=== PATIENT | male | born 1940 | race Caucasian/White ===

== ENCOUNTER 2016-04-10 05:09 | Emergency (ER) | payer MEDICARE ==
[2016-04-10] MEDS ORDERED: dexameTHASONE 4 MG/ML 1ML VIAL (J1100) As Ordered ONE (06:23)
[2016-04-10] MEDS ORDERED: IPRATROPIUM 0.5MG/ALBUTEROL 2.5MG INH SOL UD 3ML (DUONEB)(J7620) As Ordered ONE (06:24)
--- NOTE | 2016-04-10 06:47 | EDDOCDS ---
Nurse's Notes [facility] Name: Yusuf Tinsley Age: 75 yrs Sex: Male : 1940 Arrival Date: 04/10/2016 Time: 05:09 Bed 9 Private MD: Diagnosis: Acute upper respiratory infection, unspecified-viral;Acute bronchitis Presentation: 04/10 05:20 Presenting complaint: Patient states: Sick all week. Was seen at [facility] last kmg1 week. Was dx with a sinus infection. Remains ill and congestion has settled in chest. Also has diarrhea. Suicide/Homicide risk assessment- the patient denies having any suicidal and/or homicidal ideations and does not present with any other emotional, behavioral or mental health complaints. 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 Transition of care: patient was not received from another setting of care. 05:20 [place]: [place] [facility] [place] Method Of Arrival: [place] [facility] [place] Adult Sepsis Screening: The patient does not have new or worsening altered mentation. tm5 Patient's respiratory rate is less than 22. Systolic blood pressure is greater than 100. Patient has a qSOFA score of 0- Negative Sepsis Screen. Triage Assessment: 05:28 General: Appears in no apparent distress, comfortable, Behavior is appropriate for age, kmg1 cooperative. Pain: Denies pain. Respiratory: Respiratory effort is even, unlabored, Respiratory pattern is regular, symmetrical. Historical: - Allergies: No known drug Allergies; - Home Meds: 1. Augmentin 875-125 mg Oral tab 1 tab every 12 hours (Last dose: 04/09/2016) 2. tamsulosin 0.4 mg oral cp24 1 cap nightly (Last dose: 04/09/2016) 3. losartan-hydrochlorothiazide 100-12.5 mg oral tab 1 tab once daily (Last dose: 04/09/2016) 4. finasteride 5 mg oral tab 1 tab once daily (Last dose: 04/09/2016) 5. Tylenol Cold and Flu Severe 6-88-884-200 mg/15 mL oral liqd (Last dose: 04/10/2016 04:00) - PMHx: Hypertension; Bladder Cancer; Cataracts; - Social history: Smoking status: Patient states former smoker of tobacco. No barriers to communication noted, The patient speaks fluent [place], Speaks appropriately for age, Preferred Language: [place]. - Family history: Not pertinent. - : The pt / caregiver states he / she is not on anticoagulants. Home medication list is obtained from pill bottles. - Exposure Risk Screening:: None identified. Screenin:36 Screening information is obtained from the patient. Fall risk: No risks identified. tm5 Assistance ADL's: requires no assistance with activities of daily living. Abuse/DV Screen: The patient / caregiver reports he/she is: not in a situation that causes fear, pain or injury. Nutritional screening: No deficits noted. Advance Directives: There is no active DNR order. home support is adequate. Assessment: 05:37 General: Appears in no apparent distress, Behavior is appropriate for age, cooperative. tm5 Pain: Denies pain. Neurological: Level of Consciousness is awake, alert, Oriented to person, place, time. Cardiovascular: Chest pain is denied. Respiratory: Airway is patent Respiratory effort is even, unlabored, Respiratory pattern is regular, symmetrical, Derm: Skin is pink, warm & dry. 06:44 Reassessment: Patient appears in no apparent distress at this time. Patient states tm5 feeling better. Patient states symptoms have improved. Vital Signs: 05:28 BP 145 / 81; Pulse 74; Resp 18; Temp 97.9; Pulse Ox 93% on R/A; Weight 111.13 kg (R); [facility] [place] 6 ft. (182.88 cm) (R); Pain 0/10; 06:44 BP 132 / 66; Pulse 70; Resp 18; Temp 98.0(O); Pulse Ox 95% on R/A; Pain 0/10; tm5 05:28 Body Mass Index 33.23 (111.13 kg, 182.88 cm) [facility] [place] Vitals: 05:28 Log In Time: April 10, 2016 at 05:12. [facility] [place] Course: 05:11 Patient visited by Bernie Laguerre Reg. hs2 05:11 Patient moved to Waiting hs2 05:22 [place]riage [place] [facility] [place] Burtno Wheat DO is Attending Physician. cs11 05:33 Patient visited by Burton Wheat DO. cs11 05:33 Patient moved to km 05:36 Patient visited by Joycelyn Montano RN. tm5 05:36 Patient moved to radiology. tm5 05:37 The patient / caregiver is instructed regarding the plan of care and ED course. tm5 05:56 [facility] Payment Agreement was scanned into [employer] and attached to record. hs2 06:33 Inserted saline lock: 20 gauge in right antecubital area The patient tolerated the tm5 procedure well. 06:33 Discontinued lock intact, bleeding controlled, pressure dressing applied, No tm5 redness/swelling at site. 06:38 Patient visited by Joycelyn Montano RN. tm5 06:44 Patient visited by Joycelyn Montano RN. tm5 06:44 No procedures done that require assistance. tm5 Administered Medications: 06:27 Drug: Albuterol-Ipratropium 3 ml [ipratropium-albuterol 0.5 mg-3 mg(2.5 mg base)/3 mL jc3 nebulization soln (3 mL)] Route: Inhalation; 06:38 Follow up: Response: No Adverse Reaction tm5 06:32 Drug: Dexamethasone 12 mg [dexamethasone 4 mg/mL injection solution] Route: IV; Rate: tm5 bolus; Site: right antecubital; RT: 06:27 Initial Med Neb Given as ordered Patient was instructed and evaluated on procedure. jc3 Oxygen is room air. Respiratory: Breath sounds are diminished bilaterally. Breath sounds with wheezes bilaterally. at expiration. Order Results: There are currently no results for this order. Outcome: 06:39 Discharge ordered by Provider. cs11 06:44 Discharge Assessment: Patient awake, alert and oriented x 3. No cognitive and/or tm5 functional deficits noted. Patient verbalized understanding of disposition instructions. patient administered narcotics - no. The following High Risk Discharge criteria are identified: None. Discharged to home ambulatory, with significant other. Condition: good Condition: stable Condition: improved. Discharge instructions given to patient, Instructed on discharge instructions, follow up and referral plans. medication usage, Demonstrated understanding of instructions, medications, Pt was receptive of discharge instructions/ teaching. Prescriptions given X 1. No special radiology studies were completed. Property :Personal belongings accompany Pt. 06:46 Patient left the ED. tm5 Signatures: Liliam Douglass RN RN kmg1 Johny Becerra jc3 Burton Wheat DO DO cs11 Bernie Laguerre, Reg Reg hs2 Matice,Joycelyn,RN RN tm5 MTDD
--- NOTE | 2016-04-10 06:47 | EDDOCDS ---
Physician Documentation [facility] Name: Yusuf Tinsley Age: 75 yrs Sex: Male : 1940 Arrival Date: 04/10/2016 Time: 05:09 Bed 9 Private MD: Disposition: 04/10/16 06:39 Discharged to Home/Self Care. Impression: Acute upper respiratory infection, unspecified - viral, Acute bronchitis. - Condition is Stable. - Prescriptions for Prednisone 20 mg Oral Tablet - take 3 tablets by ORAL route once daily for 4 days; 12 tablet. - Medication Reconciliation, Local Pharmacy Hours form. - Follow up: Private Physician; When: Call to arrange an appointment; Reason: Recheck today's complaints. - Problem is an ongoing problem. - Symptoms have improved. Historical: - Allergies: No known drug Allergies; - Home Meds: 1. Augmentin 875-125 mg Oral tab 1 tab every 12 hours (Last dose: 04/09/2016) 2. tamsulosin 0.4 mg oral cp24 1 cap nightly (Last dose: 04/09/2016) 3. losartan-hydrochlorothiazide 100-12.5 mg oral tab 1 tab once daily (Last dose: 04/09/2016) 4. finasteride 5 mg oral tab 1 tab once daily (Last dose: 04/09/2016) 5. Tylenol Cold and Flu Severe 3-31-584-200 mg/15 mL oral liqd (Last dose: 04/10/2016 04:00) - PMHx: Hypertension; Bladder Cancer; Cataracts; - Social history: Smoking status: Patient states former smoker of tobacco. No barriers to communication noted, The patient speaks fluent Bulgarian, Speaks appropriately for age, Preferred Language: Bulgarian. - Family history: Not pertinent. - : The pt / caregiver states he / she is not on anticoagulants. Home medication list is obtained from pill bottles. - Exposure Risk Screening:: None identified. Vital Signs: 04/10 05:28 BP 145 / 81; Pulse 74; Resp 18; Temp 97.9; Pulse Ox 93% on R/A; Weight 111.13 kg / 245 kmg1 lbs (R); Height 6 ft. (182.88 cm) (R); Pain 0/10; 06:44 BP 132 / 66; Pulse 70; Resp 18; Temp 98.0(O); Pulse Ox 95% on R/A; Pain 0/10; tm5 05:28 Body Mass Index 33.23 (111.13 kg, 182.88 cm) km MDM: 05:35 Chest, 2 View (pa\E\lat) Ordered. EDMS 05:55 Financial registration complete. hs2 05:56 [facility] Payment Agreement was scanned into [employer] and attached to record. hs2 06:19 IV Saline Lock ordered. cs11 06:19 Dexamethasone 12 mg IV at bolus once ordered. cs11 06:19 Albuterol-Ipratropium 3 ml Inhalation once ordered. cs11 06:19 Call Respiratory ordered. cs11 06:20 Call Respiratory complete. tm5 Administered Medications: 06:27 Drug: Albuterol-Ipratropium 3 ml [ipratropium-albuterol 0.5 mg-3 mg(2.5 mg base)/3 mL jc3 nebulization soln (3 mL)] Route: Inhalation; 06:38 Follow up: Response: No Adverse Reaction tm5 06:32 Drug: Dexamethasone 12 mg [dexamethasone 4 mg/mL injection solution] Route: IV; Rate: tm5 bolus; Site: right antecubital; Signatures: Dispatcher [employer] EDMS Liliam Douglass RN RN kmg1 Burton Wheat DO DO cs11 Bernie Laguerre, Elmer Reg hs2 Joycelyn Montano RN RN tm5 Johny Becerra jc3 The chart was reviewed and I authenticate all verbal orders and agree with the evaluation and treatment provided.Attachments: 05:56 [facility] Payment Agreement hs2 MTDD
--- NOTE | 2016-04-10 07:37 | REP ---
Clinical: Cough. Technique: PA and lateral. Comparison: 08/11/2005. Findings: Lingular atelectasis is suggested and requires correlation with auscultation and physical examination. Lung washburn are otherwise stable and clear. No pleural effusion or pneumothorax. Mediastinum and cardiac silhouette normal. Skeletal structures intact. Impression: Lingular atelectasis suggested. Correlation recommended along with follow-up to resolution. Signed by Ranjeet Mcintosh MD 04/10/2016 07:28 A
--- NOTE | 2016-04-12 07:46 | EDDOCDS ---
Nurse's Notes [facility] Name: Yusuf Tinsley Age: 75 yrs Sex: Male : 1940 Arrival Date: 04/10/2016 Time: 05:09 Bed 9 Private MD: Diagnosis: Acute upper respiratory infection, unspecified-viral;Acute bronchitis Presentation: 04/10 05:20 Presenting complaint: Patient states: Sick all week. Was seen at [facility] last kmg1 week. Was dx with a sinus infection. Remains ill and congestion has settled in chest. Also has diarrhea. Suicide/Homicide risk assessment- the patient denies having any suicidal and/or homicidal ideations and does not present with any other emotional, behavioral or mental health complaints. 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 Transition of care: patient was not received from another setting of care. 05:20 Acuity: SAMUEL Level 4 [facility] [place] Method Of Arrival: Walkin/Carried/Asstd [facility] [place] 06:46 Adult Sepsis Screening: The patient does not have new or worsening altered mentation. tm5 Patient's respiratory rate is less than 22. Systolic blood pressure is greater than 100. Patient has a qSOFA score of 0- Negative Sepsis Screen. Triage Assessment: 05:28 General: Appears in no apparent distress, comfortable, Behavior is appropriate for age, kmg1 cooperative. Pain: Denies pain. Respiratory: Respiratory effort is even, unlabored, Respiratory pattern is regular, symmetrical. Historical: - Allergies: No known drug Allergies; - Home Meds: 1. Augmentin 875-125 mg Oral tab 1 tab every 12 hours (Last dose: 04/09/2016) 2. tamsulosin 0.4 mg oral cp24 1 cap nightly (Last dose: 04/09/2016) 3. losartan-hydrochlorothiazide 100-12.5 mg oral tab 1 tab once daily (Last dose: 04/09/2016) 4. finasteride 5 mg oral tab 1 tab once daily (Last dose: 04/09/2016) 5. Tylenol Cold and Flu Severe 1-19-356-200 mg/15 mL oral liqd (Last dose: 04/10/2016 04:00) - PMHx: Hypertension; Bladder Cancer; Cataracts; - Social history: Smoking status: Patient states former smoker of tobacco. No barriers to communication noted, The patient speaks fluent [place], Speaks appropriately for age, Preferred Language: [place]. - Family history: Not pertinent. - : The pt / caregiver states he / she is not on anticoagulants. Home medication list is obtained from pill bottles. - Exposure Risk Screening:: None identified. Screenin:36 Screening information is obtained from the patient. Fall risk: No risks identified. tm5 Assistance ADL's: requires no assistance with activities of daily living. Abuse/DV Screen: The patient / caregiver reports he/she is: not in a situation that causes fear, pain or injury. Nutritional screening: No deficits noted. Advance Directives: There is no active DNR order. home support is adequate. Assessment: 05:37 General: Appears in no apparent distress, Behavior is appropriate for age, cooperative. tm5 Pain: Denies pain. Neurological: Level of Consciousness is awake, alert, Oriented to person, place, time. Cardiovascular: Chest pain is denied. Respiratory: Airway is patent Respiratory effort is even, unlabored, Respiratory pattern is regular, symmetrical, Derm: Skin is pink, warm & dry. 06:44 Reassessment: Patient appears in no apparent distress at this time. Patient states tm5 feeling better. Patient states symptoms have improved. Vital Signs: 05:28 BP 145 / 81; Pulse 74; Resp 18; Temp 97.9; Pulse Ox 93% on R/A; Weight 111.13 kg (R); [facility] [place] Height 6 ft. (182.88 cm) (R); Pain 0/10; 06:44 BP 132 / 66; Pulse 70; Resp 18; Temp 98.0(O); Pulse Ox 95% on R/A; Pain 0/10; tm5 05:28 Body Mass Index 33.23 (111.13 kg, 182.88 cm) [facility] [place] Vitals: 05:28 Log In Time: April 10, 2016 at 05:12. [facility] [place] Course: 05:11 Patient visited by Bernie Laguerre Reg. hs2 05:11 Patient moved to Waiting hs2 05:22 Triage Initiated [facility] [place] 05:33 Burton Wheat DO is Attending Physician. cs11 05:33 Patient visited by Burton Wheat DO. cs11 05:33 Patient moved to km 05:36 Patient visited by Joycelyn Montano RN. tm5 05:36 Patient moved to radiology. tm5 05:37 The patient / caregiver is instructed regarding the plan of care and ED course. tm5 05:56 [facility] Payment Agreement was scanned into [employer] and attached to record. hs2 06:33 Inserted saline lock: 20 gauge in right antecubital area The patient tolerated the tm5 procedure well. 06:33 Discontinued lock intact, bleeding controlled, pressure dressing applied, No tm5 redness/swelling at site. 06:38 Patient visited by Joycelyn Montano,NELDA. tm5 06:44 Patient visited by Joycelyn Montano,NELDA. tm5 06:44 No procedures done that require assistance. tm5 07:59 Chest, 2 View (pa\E\lat) Returned. EDMS 09:07 T-Sheet-- Draft Copy was scanned into [employer] and attached to record. seh Administered Medications: 06:27 Drug: Albuterol-Ipratropium 3 ml [ipratropium-albuterol 0.5 mg-3 mg(2.5 mg base)/3 mL jc3 nebulization soln (3 mL)] Route: Inhalation; 06:38 Follow up: Response: No Adverse Reaction tm5 06:32 Drug: Dexamethasone 12 mg [dexamethasone 4 mg/mL injection solution] Route: IV; Rate: tm5 bolus; Site: right antecubital; RT: 06:27 Initial Med Neb Given as ordered Patient was instructed and evaluated on procedure. jc3 Oxygen is room air. Respiratory: Breath sounds are diminished bilaterally. Breath sounds with wheezes bilaterally. at expiration. Order Results: Radiology Order: Chest, 2 View (pa\E\lat) Test: Chest, 2 View (pa\E\lat) REASON FOR EXAMINATION: Cough; Clinical: Cough.; ; Technique: PA and lateral.; ; Comparison: 08/11/2005.; ; Findings:; Lingular atelectasis is suggested and requires correlation with auscultation and; physical examination. Lung washburn are otherwise stable and clear. No pleural; effusion or pneumothorax. Mediastinum and cardiac silhouette normal. Skeletal; structures intact.; ; ; ; Impression:; Lingular atelectasis suggested. Correlation recommended along with follow-up to; resolution.; ; ; Signed by; Ranjeet Mcintosh MD 04/10/2016 07:28 A; Outcome: 06:39 Discharge ordered by Provider. cs11 06:44 Discharge Assessment: Patient awake, alert and oriented x 3. No cognitive and/or tm5 functional deficits noted. Patient verbalized understanding of disposition instructions. patient administered narcotics - no. The following High Risk Discharge criteria are identified: None. Discharged to home ambulatory, with significant other. Condition: good Condition: stable Condition: improved. Discharge instructions given to patient, Instructed on discharge instructions, follow up and referral plans. medication usage, Demonstrated understanding of instructions, medications, Pt was receptive of discharge instructions/ teaching. Prescriptions given X 1. No special radiology studies were completed. Property :Personal belongings accompany Pt. 06:46 Patient left the ED. tm5 Signatures: Dispatcher [employer] EDMS Liliam Douglass, RN RN kmg1 Johny Becerra jc3 Burton Wheat DO DO cs11 Bernie Laguerre, Reg Reg hs2 Lucía De La Rosa TonyaRN RN tm5 Chart Complete [facility]
--- NOTE | 2016-04-12 07:46 | EDDOCDS ---
Physician Documentation [facility] Name: Yusuf Tinsley Age: 75 yrs Sex: Male : 1940 Arrival Date: 04/10/2016 Time: 05:09 Bed 9 Private MD: Disposition: 04/10/16 06:39 Discharged to Home/Self Care. Impression: Acute upper respiratory infection, unspecified - viral, Acute bronchitis. - Condition is Stable. - Prescriptions for Prednisone 20 mg Oral Tablet - take 3 tablets by ORAL route once daily for 4 days; 12 tablet. - Medication Reconciliation, Local Pharmacy Hours form. - Follow up: Private Physician; When: Call to arrange an appointment; Reason: Recheck today's complaints. - Problem is an ongoing problem. - Symptoms have improved. Historical: - Allergies: No known drug Allergies; - Home Meds: 1. Augmentin 875-125 mg Oral tab 1 tab every 12 hours (Last dose: 04/09/2016) 2. tamsulosin 0.4 mg oral cp24 1 cap nightly (Last dose: 04/09/2016) 3. losartan-hydrochlorothiazide 100-12.5 mg oral tab 1 tab once daily (Last dose: 04/09/2016) 4. finasteride 5 mg oral tab 1 tab once daily (Last dose: 04/09/2016) 5. Tylenol Cold and Flu Severe 2-22-426-200 mg/15 mL oral liqd (Last dose: 04/10/2016 04:00) - PMHx: Hypertension; Bladder Cancer; Cataracts; - Social history: Smoking status: Patient states former smoker of tobacco. No barriers to communication noted, The patient speaks fluent Kyrgyz, Speaks appropriately for age, Preferred Language: Kyrgyz. - Family history: Not pertinent. - : The pt / caregiver states he / she is not on anticoagulants. Home medication list is obtained from pill bottles. - Exposure Risk Screening:: None identified. Vital Signs: 04/10 05:28 BP 145 / 81; Pulse 74; Resp 18; Temp 97.9; Pulse Ox 93% on R/A; Weight 111.13 kg / 245 kmg1 lbs (R); Height 6 ft. (182.88 cm) (R); Pain 0/10; 06:44 BP 132 / 66; Pulse 70; Resp 18; Temp 98.0(O); Pulse Ox 95% on R/A; Pain 0/10; tm5 05:28 Body Mass Index 33.23 (111.13 kg, 182.88 cm) [facility] [place]DM: 05:35 Chest, 2 View (pa\E\lat) Ordered. EDMS 05:55 Financial registration complete. hs2 05:56 [facility] Payment Agreement was scanned into [employer] and attached to record. hs2 06:19 IV Saline Lock ordered. cs11 06:19 Dexamethasone 12 mg IV at bolus once ordered. cs11 06:19 Albuterol-Ipratropium 3 ml Inhalation once ordered. cs11 06:19 Call Respiratory ordered. cs11 06:20 Call Respiratory complete. tm5 09:07 T-Sheet-- Draft Copy was scanned into [employer] and attached to record. seh Administered Medications: 06:27 Drug: Albuterol-Ipratropium 3 ml [ipratropium-albuterol 0.5 mg-3 mg(2.5 mg base)/3 mL jc3 nebulization soln (3 mL)] Route: Inhalation; 06:38 Follow up: Response: No Adverse Reaction tm5 06:32 Drug: Dexamethasone 12 mg [dexamethasone 4 mg/mL injection solution] Route: IV; Rate: tm5 bolus; Site: right antecubital; Signatures: Dispatcher [employer] EDSD Liliam Douglass, RN RN kmg1 Burton Wheat DO DO cs11 Bernie Laguerre, Reg Reg hs2 Lucía De La Rosa Tonya, RN RN tm5 Johny Becerra jc3 The chart was reviewed and I authenticate all verbal orders and agree with the evaluation and treatment provided.Attachments: 05:56 [facility] Payment Agreement hs2 09:07 T-Sheet-- Draft Copy se Chart Complete MTDD
--- NOTE | 2016-04-12 07:46 | EDDOCDS ---
Physician Documentation [facility] Name: Yusuf Tinsley Age: 75 yrs Sex: Male : 1940 Arrival Date: 04/10/2016 Time: 05:09 Bed 9 Private MD: Disposition: 04/10/16 06:39 Discharged to Home/Self Care. Impression: Acute upper respiratory infection, unspecified - viral, Acute bronchitis. - Condition is Stable. - Prescriptions for Prednisone 20 mg Oral Tablet - take 3 tablets by ORAL route once daily for 4 days; 12 tablet. - Medication Reconciliation, Local Pharmacy Hours form. - Follow up: Private Physician; When: Call to arrange an appointment; Reason: Recheck today's complaints. - Problem is an ongoing problem. - Symptoms have improved. Historical: - Allergies: No known drug Allergies; - Home Meds: 1. Augmentin 875-125 mg Oral tab 1 tab every 12 hours (Last dose: 04/09/2016) 2. tamsulosin 0.4 mg oral cp24 1 cap nightly (Last dose: 04/09/2016) 3. losartan-hydrochlorothiazide 100-12.5 mg oral tab 1 tab once daily (Last dose: 04/09/2016) 4. finasteride 5 mg oral tab 1 tab once daily (Last dose: 04/09/2016) 5. Tylenol Cold and Flu Severe 9-62-107-200 mg/15 mL oral liqd (Last dose: 04/10/2016 04:00) - PMHx: Hypertension; Bladder Cancer; Cataracts; - Social history: Smoking status: Patient states former smoker of tobacco. No barriers to communication noted, The patient speaks fluent Syriac, Speaks appropriately for age, Preferred Language: Syriac. - Family history: Not pertinent. - : The pt / caregiver states he / she is not on anticoagulants. Home medication list is obtained from pill bottles. - Exposure Risk Screening:: None identified. Vital Signs: 04/10 05:28 BP 145 / 81; Pulse 74; Resp 18; Temp 97.9; Pulse Ox 93% on R/A; Weight 111.13 kg / 245 kmg1 lbs (R); Height 6 ft. (182.88 cm) (R); Pain 0/10; 06:44 BP 132 / 66; Pulse 70; Resp 18; Temp 98.0(O); Pulse Ox 95% on R/A; Pain 0/10; tm5 05:28 Body Mass Index 33.23 (111.13 kg, 182.88 cm) [facility] [place] MDM: 05:35 Chest, 2 View (pa\E\lat) Ordered. EDMS 05:55 Financial registration complete. hs2 05:56 [facility] Payment Agreement was scanned into [employer] and attached to record. hs2 06:19 IV Saline Lock ordered. cs11 06:19 Dexamethasone 12 mg IV at bolus once ordered. cs11 06:19 Albuterol-Ipratropium 3 ml Inhalation once ordered. cs11 06:19 Call Respiratory ordered. cs11 06:20 Call Respiratory complete. tm5 09:07 T-Sheet-- Draft Copy was scanned into [employer] and attached to record. seh Administered Medications: 06:27 Drug: Albuterol-Ipratropium 3 ml [ipratropium-albuterol 0.5 mg-3 mg(2.5 mg base)/3 mL jc3 nebulization soln (3 mL)] Route: Inhalation; 06:38 Follow up: Response: No Adverse Reaction tm5 06:32 Drug: Dexamethasone 12 mg [dexamethasone 4 mg/mL injection solution] Route: IV; Rate: tm5 bolus; Site: right antecubital; Signatures: Dispatcher [employer] EDMA Liliam Douglass, RN RN kmg1 Burton Wheat DO DO cs11 Bernie Laguerre, Reg Reg hs2 Lucía De La Rosa Tonya, RN RN tm5 Johny Becerra jc3 The chart was reviewed and I authenticate all verbal orders and agree with the evaluation and treatment provided.Attachments: 05:56 [facility] Payment Agreement hs2 09:07 T-Sheet-- Draft Copy se Chart Complete MTDD
== END 2016-04-10 06:46 | disposition home or self-care (01) ==
LOC: M ED 05:09
DX: J20.9 Acute bronchitis, unspecified (principal); J06.9 Acute upper respiratory infection, unspecified; I10 Essential (primary) hypertension; H26.9 Unspecified cataract; Z85.51 Personal history of malignant neoplasm of bladder; Z79.899 Other long term (current) drug therapy; Z79.2 Long term (current) use of antibiotics; Z87.891 Personal history of nicotine dependence
CPT/HCPCS: 71020; 94640; 96374; 99284; J1100

== ENCOUNTER → 2016-05-06 | Outpatient (CLI) | payer MEDICARE | LOC: M LRY 07:56 | PROVIDERS: ATTEND Urology | DX: R31.9 Hematuria, unspecified (principal); R35.0 Frequency of micturition ==

== ENCOUNTER → 2016-11-29 | Outpatient (CLI) | payer MEDICARE ==
[~2016-11-29] MED LIST: AMOX875T2 PO; ASPI1TAB PO; D31000TA PO; DORZ2SOL5 OU; FINA5TAB2 PO; FLOM5CAP PO; LEVOTAB10 PO; LOSA100T8 PO; PRED10TA2 PO; TYLE325T5 PO; VITA-176 PO; XALA0.007 OU
--- NOTE | 2016-11-29 09:43 | REP ---
CHEST, TWO VIEWS: HISTORY: Dyspnea. COMPARISON: 04/10/2016. Increased density is present in the lingula consistent with an infiltrate. The right lung is clear. The heart is normal in size. The pulmonary vasculature is normal in appearance. The bony structure is intact. IMPRESSION: There is an infiltrate in the lingula. An underlying mass cannot be excluded. CT of the chest is recommended for further evaluation. Signed by Clifford Mantilla MD 11/29/2016 09:48 A
== END ==
LOC: M LRY 07:53
PROVIDERS: ATTEND Physician Assistant Medical
DX: R91.8 Other nonspecific abnormal finding of lung field (principal)

== ENCOUNTER 2016-12-08 06:47 | Inpatient (IN) | payer MEDICARE ==
[~2016-12-08] VITALS: Ht 182.9 cm; Wt 111.8 kg
[2016-12-08] MEDS ORDERED: methylPREDNISolone INJ 125 MG/2 ML VIAL (J2930) IV ONE (07:15)
[2016-12-08] MEDS ORDERED: ALBUTEROL SULFATE 2.5 MG/0.5 ML INH NEB SOLN INH ONE (07:15)
[2016-12-08] MEDS ORDERED: IPRATROPIUM 0.5MG/ALBUTEROL 2.5MG INH SOL UD 3ML (DUONEB)(J7620) NEB ONE (07:15)
[2016-12-08] MEDS ORDERED: ASPI1TAB PO (07:17)
[2016-12-08] MEDS ORDERED: FINA5TAB2 PO (07:17)
[2016-12-08] MEDS ORDERED: LEVOTAB10 PO (07:17)
[2016-12-08] MEDS ORDERED: VITA-176 PO (07:17)
[2016-12-08] MEDS ORDERED: LOSA100T8 PO (07:17)
[2016-12-08] MEDS ORDERED: DORZ2SOL5 OU (07:17)
[2016-12-08] MEDS ORDERED: XALA0.007 OU (07:17)
[2016-12-08 08:05] LABS: BASO % 0.4 % (0.0-1.0); EOS # 0.1 10^3/uL (0.0-0.50); EOS % 1.3 % (0.0-3.0); IMMATURE GRANULOCYTE % 0.4 % (0-0); LYMPH # 1.5 10^3/uL (1.5-4.5); LYMPH % 16.5 % (24.0-44.0); MEAN CORPUSCULAR VOLUME 87.7 fl (80.0-96.0); MONO # 0.6 10^3/uL (0.0-0.8); MONO % 6.6 % (0.0-5.0); NEUTROPHILS # 6.7 10^3/uL (1.8-7.7); NEUTROPHILS % 74.8 % (36.0-66.0); PLATELET COUNT, AUTOMATED 275 10^3/uL (150-450); RED CELL DISTRIBUTION WIDTH 13.3 % (11.5-14.5)
--- NOTE | 2016-12-08 08:08 | REP ---
Portable chest, 07:52 a.m.: Comparisons are 11/29/2078 04/10/2016. There is a large focal density in the lingula, and 2016. This could represent mass or a persisting infiltrate. CT is recommended for follow up. The right lung is clear. Cardiac size normal. The bobby, mediastinum, bony thorax are unremarkable. Impression: Persisting large density in the lingula, mass versus infiltrate. CT is recommended. Signed by Alonso Sykes MD 12/08/2016 07:59 A
[2016-12-08] MEDS ORDERED: cefTRIAXone SOD 1 GM in D5W 50 ML IV ONE (08:15)
[2016-12-08] MEDS ORDERED: AZITHROMYCIN INJ 500 MG, VIAL MATE ADAPTER 1 EACH in D5W 250 ML IV ONE (08:15)
[2016-12-08 08:23] LABS: ABG BASE EXCESS 3.2 (-2.0-2.0); ABG HCO3 28.1 MEQ/L (22.0-26.0); ABG PARTIAL PRESSURE CO2 43.6 mmHg (35.0-45.0); ABG PARTIAL PRESSURE O2 61.7 mmHg (75.0-100.0); ABG STANDARD HCO3 27.2 MEQ/L (22.0-26.0); ABG TOTAL CO2 29.4 MEQ/L (23.0-31.0); ABG pH (ARTERIAL) 7.427 UNITS (7.350-7.450)
--- NOTE | 2016-12-08 08:29 | ECGEPIP ---
Stationary ECG Study [facility] Test Date: 2016-12-08 Pat Name: THAO FORDE Department: Room: - Gender: M Under Baster: KATARZYNA : 1940 Requested By: DANIEL Willingham Order Number: [id number] Reading MD: Олег Leigh Measurements Intervals [place] Rate: 75 P: 56 ID: [id number] QRS: 67 QRSD: 124 T: 50 QT: 366 QTc: 409 Interpretive Statements Normal sinus rhythm Low voltages with slow precordial R-wave progression and persistent S waves V5 and V6; body habitus versus Pulmonary disease Marginal inferior ST scooping No prior tracing for comparison Electronically Signed On 12-08-2016 8:29:09 EDT by Олег Leigh
[2016-12-08 08:46] LABS: ALBUMIN 3.5 GM/DL (3.2-5.2); ALBUMIN/GLOBULIN RATIO 0.97 (1.00-1.93); ALKALINE PHOSPHATASE 95 U/L (45-117); ALT/SGPT 20 U/L (12-78); ANION GAP 8 MEQ/L (8-16); AST/SGOT 12 U/L (15-37); BILIRUBIN,DIRECT 0.2 MG/DL (0.0-0.2); BILIRUBIN,TOTAL 0.5 MG/DL (0.2-1.0); BLOOD UREA NITROGEN 11 MG/DL (7-18); CALCIUM LEVEL 8.8 MG/DL (8.8-10.2); CARBON DIOXIDE LEVEL 28 MEQ/L (21-32); CHLORIDE LEVEL 106 MEQ/L (98-107); CREATININE FOR GFR 0.74 MG/DL (0.70-1.30); GLOMERULAR FILTRATION RATE > 60.0 (>42); GLUCOSE, FASTING 109 MG/DL (83-110); POTASSIUM SERUM 4.2 MEQ/L (3.5-5.1); SODIUM LEVEL 142 MEQ/L (136-145); THYROXINE (T4) 8.8 UG/DL (4.5-12.0); TOTAL PROTEIN 7.1 GM/DL (6.4-8.2)
[2016-12-08] MEDS ORDERED: TYLE325T5 PO (08:58)
[2016-12-08] MEDS ORDERED: FLOM5CAP PO (08:58)
[2016-12-08] MEDS ORDERED: D31000TA PO (08:58)
[2016-12-08] MEDS: COSOPT OCUMETER PLUS 10ML (DORZOLAMIDE/TIMOLOL) OU SCH ×2 (09:00→20:27)
[2016-12-08] MEDS ORDERED: DOXYCYCLINE HYCLATE 100 MG TAB PO SCH (09:00)
[2016-12-08] MEDS ORDERED: ISOVUE-370 76% 100ML VIAL (Q9967) As Ordered ONE (09:23)
--- NOTE | 2016-12-08 10:26 | REP ---
CT pulmonary angiogram: With IV contrast. History: Abnormal chest x-ray. Comparison studies: Comparison is made with today's chest x-ray as well as chest x-rays from November 29, 2016 and April 10, 2016. Contrast dose: 75 cc's of Isovue [address] technique: Helical scanning is acquired and overlapping 1.5 mm and contiguous 3 mm axial images are reformatted. In addition, a 3-D work station is deployed to generate thick slab maximum intensity projection images in sagittal and coronal imaging projections. CT pulmonary angiographic findings: There is good opacification of the pulmonary arterial tree and there is no CT evidence of pulmonary embolism. The thoracic aorta enhances homogeneously and is normal in caliber, contour. Vascular calcification is noted. No extrathoracic mass or adenopathy is seen. No adrenal mass is observed. Diverticulosis is noted in the colon in the upper abdomen. There is evidence of fatty infiltration of the liver. There is a small left pleural effusion. There is extensive dense consolidation throughout the lingular segment of the left upper lobe and infiltrate is seen in much of the remainder of the left upper lobe. There is convex posteriorly bowing of the major fissure on the left adjacent to this. There are scattered granulomatous calcifications in the opacified lingular segment left upper lobe. There is evidence of bronchial narrowing of what appears to be the superior segment lingular bronchus. No obvious mass lesion is visible. Air bronchograms are seen elsewhere in the lingular opacity. The right lung is essentially clear. There is a single AP window mediastinal lymph node measuring 16 mm in greatest diameter. Subcarinal nodes are seen, the largest of which measures 17 mm in greatest diameter. These could be reactive. Impression: 1. No CT evidence of pulmonary embolism. 2. Dense consolidation in the lingular segment left upper lobe and, to a lesser extent, in the remainder of the left upper lobe. 3. Question endobronchial lesion versus extrinsic bronchial narrowing involving the superior segment lingular bronchus. 4. Small left pleural effusion. 5. Scattered granulomatous calcifications. 6. Fatty infiltration of the liver. 7. Colonic diverticulosis. Signed by Amor Kolb MD 12/08/2016 01:18 P
[2016-12-08] MEDS ORDERED: ACETAMINOPHEN TAB 650MG DOSE (2X325MG) PO PRN (11:45)
[2016-12-08] MEDS ORDERED: IPRATROPIUM 0.5MG/ALBUTEROL 2.5MG INH SOL UD 3ML (DUONEB)(J7620) NEB PRN (11:45)
[2016-12-08 15:05] VITALS: BP 140/90
[2016-12-08] MEDS: IPRATROPIUM 0.5MG/ALBUTEROL 2.5MG INH SOL UD 3ML (DUONEB)(J7620) NEB SCH ×2 (15:36→20:12)
[2016-12-08 20:00] VITALS: BP 154/74
[2016-12-08] MEDS: methylPREDNISolone INJ 40 MG/1 ML VIAL (J2920) IV SCH (20:26)
[2016-12-08] MEDS: TAMSULOSIN 0.4 MG CAP PO SCH (20:26)
[2016-12-08] MEDS: FINASTERIDE 5 MG TAB PO SCH (20:26)
[2016-12-08] MEDS: LATANOPROST 0.005% OPHTH SOLN 2.5 ML OU SCH (20:27)
--- NOTE | 2016-12-08 20:47 | HPEPDOC ---
General Date of Admission Dec 08, 2016 at 12:38 Primary Care Physician: Tyrese Vazquez Attending Physician: DILIP CURTIS MD Chief Complaint The patient is a 76-year-old male admitted with a reason for visit of Pneumonia. History of Present Illness Patient is 76-year-old male with past medical history significant for hypertension, BPH, glaucoma, overactive bladder presents emergency room with shortness of breath. The shortness of breath spent ongoing for the past year or so but lately has gotten worse. Within the last 3 weeks patient noticed he is more short of breath with ambulation. He states he can now only walk about 20 steps and he gets out of breath. He still to walk a lot further. Patient reports having periods of shortness of breath with lying down to sleep. This wakes him up in the night frequently. Lately he has been waking him up even more about 3-4 times a night. Only sleeping really an hour at night. Happens anytime he lays flat. Patient is seen at [facility]. Was initially sent to Dr. Williamson, cardiology who performed a workup. Echocardiogram was performed October 2016 revealed left ventricular ejection fracture of 60-70%. Stress test was a normal test. Patient was seemingly cleared by cardiology. Patient return to the [facility] clinic and had chest x-ray performed. Was then referred to pulmonology. Patient is still in the process of being referred and has not seen a shop hand yet. Patient reports also having a cough last few days. Coughing up very little, clear phlegm. Denies any blood. No chest pain. Denies any pleuritic chest pain. Patient also admits to having some dizziness when he gets up quick. Happens with changing position. Feels like he is going to pass out. Still eating and drinking oral intake well. Home Medications Scheduled (Losartan Potassium/Hydroc 100-12.5 mg) 1 Tab Tab, 1 TAB PO DAILY, (Reported) (Dorzolamide HCl/Timolol M 22.3-6.8 mg/ml) 1 Luanne Luanne, 1 DROP OU BID, (Reported) Amoxicillin/Clavulanate Potas (Amoxicillin/Clavulanate P 875-125 mg) 1 Tab Tab, 875 MG PO BID Cholecalciferol (D3) 1,000 Unit Tab, 3,000 UNIT PO DAILY, (Reported) Finasteride (Finasteride) 5 Mg Tab, 5 MG PO DAILY, (Reported) Latanoprost (Xalatan) 0.005 % Luanne, 1 DROP OU QHS, (Reported) Levocetirizine Hydrochloride (Levocetirizine Dihydrochl) 5 Mg Tab, 5 MG PO DAILY , (Reported) Prednisone (Prednisone) 10 Mg Tab, 10 MG PO ASDIRECTED 4 tablets po bid for 3 days 4 tablets po daily for 3 days 2 tablets po daily for 3 days 1 tablet daily for 3 days Tamsulosin Hydrochloride (Flomax) 0.4 Mg Cap, 0.4 MG PO QPM, (Reported) Scheduled PRN Acetaminophen (Tylenol) 325 Mg Tab, 650 MG PO Q4H PRN for PAIN, (Reported) Allergies Coded Allergies: No Known Allergies (Unverified , 12/08/16) Past Medical History Medical History Hypertension Glaucoma BPH Overactive bladder, urologist Dr. Ferdinand Hernandes, [place] History of bladder carcinoma Surgical History Bladder carcinoma removed Family History Mom: Dad: , cancer of stomach Brother: 80 years old, neck artery problem Sister: 82 years old, heart problems Social History * Smoker: former Smoker, other (smoked from 15 years old and 40, 1-2 packs a day) Alcohol: Denies Drugs: denies Recent Travel/Sick Contacts: Denies: Recent travel, Recent sick contacts Lives at home with . Has 1 dog. No drug allergies noted. Review of Symptoms Constitutional: Denies: Chills, Fever Eyes: Denies: Pain, Vision change ENT: Reports: Other Symptoms (dizzy with standing quickly, bending forward), Denies: Head Aches Skin: Denies: Rash, Lesions Pulmonary: Reports: Dyspnea, Cough, Denies: Pleuritic Chest Pain Cardiovascular: Denies: Chest Pain, Palpitations Gastrointestinal: Reports: Other Symptoms (Last BM this morning. ), Denies: Nausea, Vomiting, Abdominal Pain, Diarrhea, Melena, Hematochezia Genitourinary: Denies: Dysuria, Frequency Hematologic: Denies: Bruising, Bleeding Excessively Musculoskeletal: Denies: Neck Pain, Back Pain Neurological: Denies: Weakness, Numbness, Change in speech Physical Examination General Exam: Positive: Alert, Cooperative, No Acute Distress Eye Exam: Positive: PERRLA, Conjunctiva & lids normal, EOMI, Negative: Sclera icteric, Ptosis ENT Exam: Positive: Atraumatic Neck Exam: Positive: Supple, Negative: JVD, Lymphadenopathy Chest Exam: Positive: Diminished (left side) Heart Exam: Positive: Rate Normal, Normal S1, Normal S2 Abdomen Exam: Positive: Normal bowel sounds, Soft, Negative: Tenderness, Hepatospenomegaly Extremity Exam: Positive: Normal pulses (radial pulse 2/4) Neuro Exam: Positive: Normal Gait, Normal Speech, Strength at 5/5 X4 ext, Cranial Nerves 3-12 NL Psych Exam: Positive: Mental status NL, Oriented x 3 Vital Signs Vital Signs Date Time Temp Pulse Resp B/P (MAP) Pulse Ox O2 Delivery O2 Flow Rate FiO2 12/08/16 15:05 97.8 110 22 140/90 (107) 94 Nasal Cannula 2.0 Laboratory Data Labs 24H Laboratory Tests 2 12/08/16 07:47: Immature Granulocyte % (Auto) 0.4H, White Blood Count 9.0, Red Blood Count 5.28 , Hemoglobin 15.3, Hematocrit 46.3, Mean Corpuscular Volume 87.7, Mean Corpuscular Hemoglobin 29.0, Mean Corpuscular Hemoglobin Concent 33.0, Red Cell Distribution Width 13.3, Platelet Count 275, Neutrophils (%) (Auto) 74.8H, Lymphocytes (%) (Auto) 16.5L, Monocytes (%) (Auto) 6.6H, Eosinophils (%) (Auto) 1.3, Basophils (%) (Auto) 0.4, Neutrophils # (Auto) 6.7, Lymphocytes # (Auto) 1.5, Monocytes # (Auto) 0.6, Eosinophils # (Auto) 0.1, Basophils # (Auto) 0.0, Immature Granulocyte # (Auto) 0.0, Nucleated Red Blood Cells % (auto) 0.0, Anion Gap 8, Glomerular Filtration Rate > 60.0, Lactic Acid Level 1.6, Calcium Level 8.8, Aspartate Amino Transf (AST/SGOT) 12L, Alanine Aminotransferase (ALT/ SGPT) 20, Alkaline Phosphatase 95, Total Bilirubin 0.5, Direct Bilirubin 0.2, Total Creatine Kinase 64, Creatine Kinase MB 1.3, Creatine Kinase MB Relative Index 2.03, Troponin I < 0.02, OB-Yut-Z-Type Natriuretic Peptide 54, Total Protein 7.1, Albumin 3.5, Albumin/Globulin Ratio 0.97L, Thyroid Stimulating Hormone (TSH) 1.550, Thyroxine (T4) 8.8 12/08/16 08:08: Blood Gas Bicarbonate Standard 27.2H, Arterial Blood pH 7.427, Arterial Blood Partial Pressure CO2 43.6, Arterial Blood Partial Pressure O2 61.7L, Arterial Blood Total CO2 29.4, Arterial Blood HCO3 28.1H, Arterial Blood Base Excess 3.2H , Arterial Blood Oxygen Saturation 92.9L CBC/BMP Laboratory Tests 12/08/16 07:47 Red Blood Count 5.28, Mean Corpuscular Volume 87.7, Mean Corpuscular Hemoglobin 29.0, Mean Corpuscular Hemoglobin Concent 33.0, Red Cell Distribution Width 13.3 , Neutrophils (%) (Auto) 74.8 H, Lymphocytes (%) (Auto) 16.5 L, Monocytes (%) ( Auto) 6.6 H, Eosinophils (%) (Auto) 1.3, Basophils (%) (Auto) 0.4, Neutrophils # (Auto) 6.7, Lymphocytes # (Auto) 1.5, Monocytes # (Auto) 0.6, Eosinophils # ( Auto) 0.1, Basophils # (Auto) 0.0 Microbiology Microbiology 12/08/16 Blood Culture, Received Pending 12/08/16 Blood Culture, Received Pending 12/08/16 Influenza Virus Type A Antigen - Final, Complete 12/08/16 Influenza Virus Type B Antigen - Final, Complete Assessment/Plan 1. Pneumonia, likely postobstructive Patient has pneumonia evidence on CT scan. Continue with steroids, Solu-Medrol IV 40 twice a day. Rocephin IV for antibiotics. Ordering sputum culture. We'll change antibiotics if needed. Some culture. Respiratory therapy consulted for Acapella. Continue nebulizer treatments. Monitor vitals. Influenza negative. Blood cultures pending. 2. Hypoxia Hypoxic on ABG and is requiring oxygen to maintain O2 saturation. Monitor patient. Continue breathing treatments as needed. 3. Lung mass Lung mass noted on x-ray and CT. Pulmonology has been consulted. Appreciate their assistance in management of this patient. Sputum cytology has been ordered. 4. Hypertension Continue home medications. Monitor vitals. 5. BPH Continue home medications. Monitor urine output 6. Overactive bladder Continue home medications. Monitor urine output 7. Glaucoma continue eye drops. DVT prophylaxis teds Plan / VTE VTE Prophylaxis Ordered?: Yes Plan Plan Patient is a 76-year-old male with hypoxia and noted lung mass. Consulting pulmonology. Follow up in the morning. GME ATTESTATION GME ATTESTATION My preceptor for this patient encounter was physically present in the building during the encounter and was fully available. As needed, all aspects of the patient interview, examination, medical decision making process, and medical care plan development were reviewed and approved by the preceptor. Preceptor is aware and concurs with the plan as stated in the body of this note and will attest to such by his/her cosignature. SUSAN VALENCIA DO Dec 08, 2016 20:47
[2016-12-09] VITALS (7 sets, daily range): BP systolic 128–156; BP diastolic 60–81
[2016-12-09] MEDS: IPRATROPIUM 0.5MG/ALBUTEROL 2.5MG INH SOL UD 3ML (DUONEB)(J7620) NEB SCH ×7 (03:10→23:26)
[2016-12-09 05:32] LABS: MEAN CORPUSCULAR HEMOGLOBIN 29.1 pg (27.0-33.0); MEAN CORPUSCULAR VOLUME 88.1 fl (80.0-96.0); PLATELET COUNT, AUTOMATED 291 10^3/uL (150-450); RED CELL DISTRIBUTION WIDTH 13.5 % (11.5-14.5); WHITE BLOOD COUNT 17.2 10^3/uL (4.0-10.0)
[2016-12-09 05:46] LABS: ANION GAP 7 MEQ/L (8-16); BLOOD UREA NITROGEN 15 MG/DL (7-18); CALCIUM LEVEL 9.1 MG/DL (8.8-10.2); CARBON DIOXIDE LEVEL 29 MEQ/L (21-32); CHLORIDE LEVEL 106 MEQ/L (98-107); CREATININE FOR GFR 0.85 MG/DL (0.70-1.30); GLOMERULAR FILTRATION RATE > 60.0 (>42); GLUCOSE, FASTING 164 MG/DL (83-110); MAGNESIUM LEVEL 2.5 MG/DL (1.8-2.4); POTASSIUM SERUM 4.3 MEQ/L (3.5-5.1); SODIUM LEVEL 142 MEQ/L (136-145)
[2016-12-09] MEDS: methylPREDNISolone INJ 40 MG/1 ML VIAL (J2920) IV SCH ×2 (08:43→20:53)
[2016-12-09] MEDS: cefTRIAXone SOD 2 GM in D5W 50 ML IV SCH (08:44)
[2016-12-09] MEDS: hydroCHLOROthiazide 12.5 MG CAPSULE PO SCH (08:44)
[2016-12-09] MEDS: VITAMIN D 1,000 INTERNATIONAL UNITS TABLET PO SCH (08:44)
[2016-12-09] MEDS: COSOPT OCUMETER PLUS 10ML (DORZOLAMIDE/TIMOLOL) OU SCH ×2 (08:45→20:53)
[2016-12-09] MEDS: LOSARTAN 50 MG TAB PO SCH (08:45)
[2016-12-09] MEDS ORDERED: ENOXAPARIN 30 MG/0.3 ML SYR (J1650) SC SCH (09:00)
[2016-12-09] MEDS ORDERED: ASPIRIN 81 MG ENTERIC TAB PO SCH (09:00)
[2016-12-09] MEDS ORDERED: AZITHROMYCIN INJ 500 MG, VIAL MATE ADAPTER 1 EACH in D5W 250 ML IV SCH (10:00)
[2016-12-09] MEDS: FINASTERIDE 5 MG TAB PO SCH (20:53)
[2016-12-09] MEDS: TAMSULOSIN 0.4 MG CAP PO SCH (20:53)
[2016-12-09] MEDS: LATANOPROST 0.005% OPHTH SOLN 2.5 ML OU SCH (20:53)
[2016-12-10] MEDS: IPRATROPIUM 0.5MG/ALBUTEROL 2.5MG INH SOL UD 3ML (DUONEB)(J7620) NEB SCH ×3 (04:00→12:07)
[2016-12-10 04:40] VITALS: BP 142/84
[2016-12-10 05:22] LABS: MEAN CORPUSCULAR HGB CONC 33.1 g/dl (32.0-36.5); MEAN CORPUSCULAR VOLUME 87.8 fl (80.0-96.0); PLATELET COUNT, AUTOMATED 309 10^3/uL (150-450); RED CELL DISTRIBUTION WIDTH 13.8 % (11.5-14.5); WHITE BLOOD COUNT 19.5 10^3/uL (4.0-10.0)
[2016-12-10 05:34] LABS: ANION GAP 8 MEQ/L (8-16); BLOOD UREA NITROGEN 19 MG/DL (7-18); CALCIUM LEVEL 8.9 MG/DL (8.8-10.2); CARBON DIOXIDE LEVEL 29 MEQ/L (21-32); CHLORIDE LEVEL 103 MEQ/L (98-107); CREATININE FOR GFR 0.88 MG/DL (0.70-1.30); GLOMERULAR FILTRATION RATE > 60.0 (>42); GLUCOSE, FASTING 149 MG/DL (83-110); POTASSIUM SERUM 4.3 MEQ/L (3.5-5.1); SODIUM LEVEL 140 MEQ/L (136-145)
[2016-12-10 07:56] VITALS: BP 146/76
[2016-12-10 08:31] VITALS: BP 146/76
[2016-12-10] MEDS: VITAMIN D 1,000 INTERNATIONAL UNITS TABLET PO SCH (08:31)
[2016-12-10] MEDS: LOSARTAN 50 MG TAB PO SCH (08:31)
[2016-12-10] MEDS: hydroCHLOROthiazide 12.5 MG CAPSULE PO SCH (08:31)
[2016-12-10] MEDS: cefTRIAXone SOD 2 GM in D5W 50 ML IV SCH (08:31)
[2016-12-10] MEDS: COSOPT OCUMETER PLUS 10ML (DORZOLAMIDE/TIMOLOL) OU SCH (08:32)
[2016-12-10] MEDS: methylPREDNISolone INJ 40 MG/1 ML VIAL (J2920) IV SCH (08:32)
[2016-12-10] MEDS ORDERED: PRED10TA2 PO (10:34)
[2016-12-10] MEDS ORDERED: AMOX875T2 PO (10:34)
--- NOTE | 2016-12-10 13:15 | IPN ---
DATE OF SERVICE: 12/09/2016 Mr. Tinsley is feeling better today than he was yesterday. There are no complaints of pain, chest pain, shortness of breath. Not coughing up any sputum. Temperature is 98.1, pulse 100, respiratory rate 20, blood pressure 137/74, 93% on 2 liters. Intake and output (I and O) notable for a negative fluid balance of -1275. Body mass index 33.7. He is awake, appropriately interactive, pleasantly conversant. Breathing is symmetrically diminished with an I-to-E ratio of 1:3. Some upper airway sounds are noted. No wheezes, rales, or rhonchi. No accessory muscle use. Speaking in complete sentences. Heart is distant sounding. Normal S1, S2. No significant arrhythmia on the monitor. Abdomen soft, doughy, nontender. No lower extremity edema. White count 17.2, hemoglobin 14.4, platelets 291. BUN 15, creatinine 0.8. Blood cultures negative at 24 hours. My assessment is as follows: This is a 76-year-old admitted with possible postobstructive pneumonia with likely obstructing lung mass. The plan will be as follows: 1. For pneumonia, the patient is continued on steroids, and the patient likely has early postobstructive pneumonia. 2. The patient has a lung mass. I discussed this case in person with Dr. Brooks. I did make the patient nothing by mouth this morning for a possible bronchoscopy, but the plan will be to pursue bronchoscopy on 12/13/2016. Will need to discuss with the patient whether or not he is willing to stay in the hospital that long for a procedure. He may benefit from discharge home once he is symptomatically improved and especially if he is not hypoxic. 3. The patient has hypertension. Continue home medicines. 4. The patient has benign prostatic hypertrophy (BPH). 5. The patient has overactive bladder. 6. The patient has glaucoma. 7. Deep venous thrombosis (DVT) prophylaxis is mechanical.
[2016-12-11] MEDS ORDERED: INFLUENZA VIRUS VACCINE HIGH DOSE 0.5 ML SYRINGE (90662) IM ONE (09:00)
--- NOTE | 2016-12-11 14:31 | CR ---
DATE OF CONSULTATION: 12/09/2016 I was asked by Dr. Belle to evaluate Mr. Tinsley for an abnormal chest CT scan. Mr. Tinsley is a 76-year-old, white male who has had progressive dyspnea over the past year. A year ago, he could easily walk a half a mile, now he might be able to walk 50 yards. He has had an intermittent cough throughout this process that may be productive of clear sputum. No hemoptysis. No wheezing, though his feels he breaths louder. No chest pain or pressure. He started experiencing paroxysmal nocturnal dyspnea (PND) perhaps two weeks ago. No orthopnea. No lower extremity edema or history of deep vein thrombosis (DVT). No postnasal drip or gastroesophageal reflux disease (GERD) symptoms. No persistent fever, chills or drenching night sweats. Appetite is good and weight has been stable. He has not felt as if he has had an acute infection during any portion of this process. He was evaluated by cardiology and reportedly no abnormalities were found. Interestingly, he went to an urgent care a couple of weeks ago and had a chest x-ray done which showed a lingular infiltrate. When asked if he had any treatment, he said no. I believe he has never been tried on antibiotics, corticosteroids or other interventions. What was done after his last chest x- ray was a referral for pulmonary consultation. Mr. Tinsley may have had bronchitis a couple of times in his life. He has no diagnosis of pneumonia. No history concerning for asthma. PAST MEDICAL HISTORY: 1. Hypertension. 2. Benign prostatic hypertrophy (BPH). 3. Glaucoma. 4. Overactive bladder. 5. Vitamin D deficiency. 6. History of bladder cancer, status post resection. 7. History of tobacco usage. FAMILY HISTORY: His mother is . His father is also and had a history of stomach cancer. He has an 80-year-old brother with carotid difficulties. He has an 82-year-old sister with some type of heart problem. SOCIAL HISTORY: Mr. Tinsley is a former smoker, having started at age 15. For the first five years, he smoked one pack per day. From age 20 to 40, he smoked two packs per day, giving him a 45 pack year history. He does not chew tobacco. He does not currently drink alcohol. No street drug usage. He lives with his , son and [id number]. His [id number] has a dog. 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 No tuberculosis exposure. ALLERGIES: No known drug allergies. MEDICATIONS ON ADMISSION: - acetaminophen 650 mg by mouth every 4 hours as needed - aspirin 81 mg by mouth daily - vitamin D3 3000 units by mouth daily - dorzolamide/timolol 1 drop both eyes twice a day - finasteride 5 mg by mouth daily - Xalatan 1 drop both eyes at bedtime - levocetirizine 5 mg by mouth daily - losartan/HCTZ 100/12.5 one by mouth daily - Flomax 0.4 mg by mouth every evening REVIEW OF SYSTEMS: As per history of present illness (HPI). Remainder of pertinent review of systems are negative. PHYSICAL EXAMINATION: GENERAL: Mr. Tinsley is lying in bed in no acute distress. He can easily complete full sentences. No cough throughout the evaluation. He can easily move from a lying position to a sitting position. VITAL SIGNS: Temperature 98.1, pulse 100, blood pressure 133/74, with a MAP of 95, SpO2 93% on 2 liters by nasal cannula. HEENT: Anicteric. Nares patent bilaterally. Oxygen tubing in place. Oropharynx clear. No lesions. Fair dentition. Mallampati IV. Facies normal. NECK: Supple. Without jugular venous distention (JVD), thyromegaly or masses. Trachea is midline. LYMPHS: Without cervical or supraclavicular lymphadenopathy. LUNGS: Symmetric excursion. The right lung shows no wheeze, rhonchi or crackle. The left lung shows mid lung bronchial breath sounds. No wheeze or crackle. Normal I:E without change on forced maneuver. No change in examination on forced maneuver. Normal percussion and palpation. CHEST: Normal shape. CARDIOVASCULAR: Regular rate and rhythm. Normal S1, S2. No murmur, rub or gallop appreciated. ABDOMEN: Positive bowel sounds. Soft. Nondistended. Nontender. No hepatosplenomegaly or masses appreciated. EXTREMITIES: Without clubbing, cyanosis or edema. NEUROLOGIC: Awake, alert and oriented times three. PSYCHIATRIC: Appropriate affect. LABORATORY DATA: CBC on admission showed a hemoglobin of 15.3, hematocrit 46.3, platelet count 275,000, white blood cell count 9,000, with a differential of 75% neutrophils, 17% lymphocytes and 7% monocytes. CBC from this morning showed a WBC count was 17.2, but he was given systemic corticosteroids. Today's electrolytes were sodium 142, potassium 4.3, chloride 106, bicarbonate 29, anion gap 7, BUN 15, creatinine 0.9, glucose 164, calcium 9.1, magnesium 2.5. Arterial blood gas on presentation was 7.45/44/62 with a measured saturation of 93% and a base excess of 3.2. I do not know how much oxygen this was drawn on. I reviewed his chest CT pulmonary angiogram from 12/08/2016. That CT showed normal appearing cardiac silhouette and pulmonary vascular shadows. No pulmonary embolism. The right lung was clear. On the left side, there was a tiny/small pleural effusion. There was also a consolidated region within the lingula that appeared most consistent with atelectasis. There was also a left upper lobe bronchus that appeared to terminate. There was an AP window lymph node measured at 16 mm and a subcarinal lymph node that measured at 17 mm. I reviewed his chest x-ray as well as the report from 04/10/2016. That x-ray showed normal appearing cardiac silhouette and pulmonary vascular shadows. Normal mediastinal and hilar regions. There was a suggestion of a small lingula infiltrate. Normal inflation. I reviewed his chest x-ray as well as report from 11/29/2016. That x-ray showed normal appearing cardiac silhouette and pulmonary vascular shadows. There was now a fairly large homogenous appearing lingula infiltrate. I reviewed his chest x-ray as well as the report from 12/08/2016. That x-ray again showed normal appearing cardiac silhouette and pulmonary vascular shadows. Normal appearing mediastinal and hilar regions. The previously seen lingula infiltrate had markedly increased in size. IMPRESSIONS: 1. Abnormal chest CT scan. In my review of the chest CT scan, the findings are very concerning for an endobronchial lesion with atelectasis. I feel the findings on the CT scan are more suggestive of an atelectasis process, although infection cannot be excluded. Part of why I feel this way is the homogenous smooth lines as well as his history that is not striking for an infective process. 2. Dyspnea on exertion. This has been progressive over the past year and I suspect that this is related to the chest CT findings. He has had cardiac workup that did not show any significant abnormality. Pulmonary hypertension would still be in the differential. 3. Remote, but significant tobacco history. RECOMMENDATIONS: 1. I reviewed the chest CT scan as well as the differential with Mr. Tinsley and his and questions were answered. 2. I recommend bronchoscopy for evaluation of the airways and possible biopsy. 3. The risks, benefits and alternatives to bronchoscopy reviewed and questions answered. 4. I contacted OPP. Unfortunately, the earliest time available is Monday at 10:30. 5. This has been a progressive problem for him over the past year and I do not feel that he requires emergent bronchoscopy which could be done in the operating room. I do not feel the risk of general anesthesia versus awake sedation is justified. 6. The primary team has been contacted and I will defer to them as to whether they feel that Mr. Tinsley needs to be hospitalized until the bronchoscopy or whether he could be safely discharged and return on Monday as an outpatient for the procedure. LYLY
--- NOTE | 2016-12-12 19:41 | DSES ---
DATE OF ADMISSION: 12/08/2016 DATE OF DISCHARGE: 12/10/2016 SPECIALISTS INVOLVED IN HIS CARE: Included: Dr. Brooks. No complications during the stay. No procedures performed during the stay. DISCHARGE DIAGNOSES: 1. Left-sided lung mass with postobstructive pneumonia. 2. Suspected hypertension. 3. Benign prostatic hypertrophy. 4. Overactive bladder. 5. Glaucoma. SUMMARY OF HIS PRESENTATION: This is a 76-year-old who presented with increasing shortness of breath, difficulty with ambulation. He had yet to have his first visit. He came to the emergency department for evaluation and was found to have lung mass and suspected pneumonia. He was admitted to the hospitalist service, treated with steroids and antibiotics with marked improvement. Pulmonology was consulted. Unfortunately, they did not have availability for bronchoscopy until the 12/13/2016. The patient improved and did not want to stay in the hospital which seems very reasonable as he had returned to room air and was feeling better. On the day of discharge, temperature is 97.5, pulse 105, respiratory rate 18, blood pressure 146/76, 93% on room air. Awake, appropriately interactive. Breathing is symmetrical. Decreased aeration on the left. Upper airway sounds throughout. Breathing easily without accessory muscle use. Speaking in complete sentences. Ambulating without difficulty. Heart is distant sounding. Abdomen is soft, doughy, nontender. No significant lower extremity edema. LABORATORY DATA: White cell count 19.5. Creatinine is 0.88. DISCHARGE INSTRUCTIONS: Include the following: [facility] for followup instructions on Monday morning 12/12/2016. Planned for a bronchoscopy on 12/13/2016. I have discussed this case by phone with Dr. Brooks today. Activity and diet as tolerated. Continue with: - Augmentin 875 mg by mouth twice a day for seven days - prednisone tapering dose starting at 40 mg twice a day for three days, then decreasing by half every three days - Tylenol as needed for pain - vitamin D supplement - dorzolamide timolol eye drops twice a day - finasteride 5 mg by mouth daily - Xalatan in each eye daily at bedtime - levocetirizine 5 mg by mouth daily - losartan/hydrochlorothiazide 100/12.5 one tablet by mouth daily - Flomax 0.4 mg by mouth every evening Recommending that he stay off of his aspirin pending his bronchoscopy.
== END 2016-12-10 12:25 | disposition home or self-care (01) | DRG 194 ==
LOC: M ED 06:47 → M ED INP 12:38 → M PCU 15:01
PROVIDERS: ADMIT Internal Medicine; ATTEND Internal Medicine
DX: J18.9 Pneumonia, unspecified organism (principal); J98.11 Atelectasis; R09.02 Hypoxemia; R91.8 Other nonspecific abnormal finding of lung field; I10 Essential (primary) hypertension; N40.0 Benign prostatic hyperplasia without lower urinary tract symptoms; H40.9 Unspecified glaucoma; Z79.899 Other long term (current) drug therapy; Z85.51 Personal history of malignant neoplasm of bladder; Z87.891 Personal history of nicotine dependence; Z79.82 Long term (current) use of aspirin

== ENCOUNTER 2017-01-12 05:52 | Day surgery (SDC) | payer MEDICARE ==
[~2017-01-12] VITALS: Ht 182.9 cm; Wt 110.9 kg
[~2017-01-12 05:52] MED LIST changes: +ASPI81TA85 PO
[2017-01-12] MEDS ORDERED: LIDOCAINE 1% MDV 20ML VIAL SQ PRN (06:00)
[2017-01-12] MEDS ORDERED: LR 1,000 ML IV ONE (06:00)
[2017-01-12] MEDS ORDERED: ROCURONIUM BROMIDE 50 MG/5 ML VIAL As Ordered ONE (07:17)
[2017-01-12] MEDS ORDERED: PHENYLEPHRINE INJ 10MG/ML VIAL (J2370) As Ordered ONE ×2 (07:17→08:28)
[2017-01-12] MEDS ORDERED: fentaNYL 100 MCG/2 ML INJECTION (J3010) As Ordered ONE (07:17)
[2017-01-12] MEDS ORDERED: PROPOFOL 200 MG/20 ML VIAL As Ordered ONE (07:17)
[2017-01-12] MEDS ORDERED: CETACAINE SPRAY 5GM As Ordered ONE (07:18)
[2017-01-12] MEDS ORDERED: LIDOCAINE VISCOUS 2% SOLN 15ML UDC As Ordered ONE (07:18)
[2017-01-12] MEDS ORDERED: EPINEPHrine 1MG/10ML SYRINGE 1.5IN As Ordered ONE (07:18)
[2017-01-12] MEDS ORDERED: THROMBIN SOLN 5,000 UNITS VIAL As Ordered ONE (07:18)
[2017-01-12] MEDS ORDERED: NEOSTIGMINE 10 MG/10 ML VIAL (J2710) As Ordered ONE (08:00)
[2017-01-12] MEDS ORDERED: GLYCOPYRROLATE INJ 0.2 MG/ML 2 ML VIAL As Ordered ONE (08:00)
[2017-01-12] MEDS ORDERED: ONDANSETRON 4MG/2ML VIAL (J2405) As Ordered ONE (08:00)
[2017-01-12] MEDS ORDERED: dexameTHASONE 4 MG/ML 1ML VIAL (J1100) As Ordered ONE (08:29)
[2017-01-12] MEDS ORDERED: MIDAZOLAM INJ 2 MG/2 ML VIAL (J2250) As Ordered ONE (08:38)
--- NOTE | 2017-01-12 09:21 | REP ---
Clinical: Postoperative assessment. Comparison: 12/08/2016. Findings: Near complete opacification of the left hemithorax is increased from prior examination and includes ipsilateral element of mediastinal shift . The right hemithorax demonstrates basilar linear atelectasis. No obvious pneumothorax. Skeletal structures are grossly intact. Impression: 1. Increased opacification of the left hemithorax with associated ipsilateral mediastinal shift. 2. Trace linear right lower lobe atelectasis. Signed by Ranjeet Mcintosh MD 01/12/2017 09:06 A
--- NOTE | 2017-01-12 09:21 | RO ---
DATE OF PROCEDURE: 01/12/2017 PREOPERATIVE DIAGNOSIS: Abnormal chest CT with left upper lobe mass and lingular mass with postobstructive changes. POSTOPERATIVE DIAGNOSIS: Abnormal chest CT with left upper lobe mass and lingular mass with postobstructive changes. FINDINGS: Abnormal left mainstem, abnormal lingula, abnormal left upper lobe and abnormal spur between left upper lobe and lingula. PROCEDURE: Bronchoscopy with endobronchial ultrasound. PROCEDURALIST: Dr. Bobo FELT HOOKER: JACINTA Conklin ANESTHESIA: General. ESTIMATED BLOOD LOSS: 10-20 mL. SPECIMENS OBTAINED: 1. Endobronchial biopsies of the lingula, left upper lobe and spur between the left upper lobe and lingula. 2. FNA of the left hilum spur between the left upper lobe and lingula and left upper lobe. 3. Bronchial brushings left upper lobe. COMPLICATIONS: No observed complications. DESCRIPTION OF PROCEDURE: After informed consent was reviewed with the patient in the preop area, he was brought back to OR 8. General anesthesia was initiated with an 8.5 endotracheal tube and the case was handed over to mo. Time-out was performed with two patient identifiers identifying correct site, correct procedure. After anesthetization of the airway with Cetacaine spray, the 1T190 bronchoscope was inserted into the airway. The trachea was fairly midline. Ginger was slightly splayed to the left. The right mainstem bronchus was normal. RB 1 through 10 was normal without endobronchial lesions. There was some banding and pitting, and the bronchus intermedius was normal. On entering the left mainstem, there was edema of the left mainstem wall with some increased vascularity. There was clearly have abnormalities of the hilum, which was splayed. The lingula had a small pedunculated lesions that were pale in nature. There was minimal amount of blood with mucus, this was suctioned. The airways were obstructed distally from the lingula to the left upper lobe. Endobronchial biopsies were then taken of the lingula, left hilum and spur between the left upper lobe and lingula. After endobronchial biopsies were taken and hemostasis was assured, the 1T 190 bronchoscope was removed and the endobronchial ultrasound was inserted. The left hilum was viewed with a mass-like lesion. This was biopsied. I then moved up to the spur between the left lingula and left upper lobe. Again, mass-like lesion seen and therefore biopsies were taken there. After adequate FNAs for cell block were taken, the endobronchial ultrasound was removed and the 1T 190 bronchoscope was reinserted. Additional endobronchial biopsies were taken of the left upper lobe, left hilum and lingula. Pictures were also taken. I then performed brushing of the lingula. After adequate sampling, hemostasis was assured. Saline was used to ensure hemostasis. Bronchoscope was then removed, and the patient was extubated and sent to recovery. No observed complications. Postprocedure chest x-ray is pending.
[2017-01-12] MEDS ORDERED: ACETAMINOPHEN TAB 650MG DOSE (2X325MG) PO PRN (09:30)
[2017-01-12] MEDS ORDERED: ONDANSETRON 4MG/2ML VIAL (J2405) IV PRN (09:30)
[2017-01-12] MEDS ORDERED: LR 1,000 ML IV SCH (09:30)
[2017-01-12 11:10] VITALS: BP 134/63
== END 2017-01-12 11:22 | disposition home or self-care (01) ==
LOC: M SDC 05:52
PROVIDERS: ATTEND Internal Medicine Pulmonary Disease
DX: C34.32 Malignant neoplasm of lower lobe, left bronchus or lung (principal); C34.12 Malignant neoplasm of upper lobe, left bronchus or lung; C34.02 Malignant neoplasm of left main bronchus; I10 Essential (primary) hypertension; R06.02 Shortness of breath; F32.9 Major depressive disorder, single episode, unspecified; J44.9 Chronic obstructive pulmonary disease, unspecified; N40.0 Benign prostatic hyperplasia without lower urinary tract symptoms; Z79.82 Long term (current) use of aspirin; Z79.899 Other long term (current) drug therapy; Z87.891 Personal history of nicotine dependence
CPT/HCPCS: 31623; 31629; 31653; 71010; 88104; 88173; 88305; 88313; J1100; J2250; J2370; J2405; J2710; J3010

== ENCOUNTER 2017-01-14 16:18 | Emergency (ER) | payer MEDICARE ==
[~2017-01-14] VITALS: Ht 182.9 cm; Wt 110.9 kg
[2017-01-14 17:12] LABS: BASO % 0.5 % (0.0-1.0); EOS # 0.1 10^3/uL (0.0-0.50); EOS % 1.1 % (0.0-3.0); LYMPH # 1.5 10^3/uL (1.5-4.5); LYMPH % 16.7 % (24.0-44.0); MEAN CORPUSCULAR HEMOGLOBIN 29.1 pg (27.0-33.0); MEAN CORPUSCULAR HGB CONC 33.2 g/dl (32.0-36.5); MEAN CORPUSCULAR VOLUME 87.8 fl (80.0-96.0); MONO # 0.9 10^3/uL (0.0-0.8); MONO % 10.6 % (0.0-5.0); NEUTROPHILS # 6.2 10^3/uL (1.8-7.7); NEUTROPHILS % 70.1 % (36.0-66.0); PLATELET COUNT, AUTOMATED 400 10^3/uL (150-450); RED CELL DISTRIBUTION WIDTH 13.8 % (11.5-14.5); WHITE BLOOD COUNT 8.8 10^3/uL (4.0-10.0)
[2017-01-14 17:33] LABS: ALBUMIN/GLOBULIN RATIO 0.81 (1.00-1.93); ALKALINE PHOSPHATASE 101 U/L (45-117); ALT/SGPT 20 U/L (12-78); ANION GAP 7 MEQ/L (8-16); AST/SGOT 14 U/L (7-37); BILIRUBIN,DIRECT < 0.1 MG/DL (0.0-0.2); BILIRUBIN,TOTAL 0.3 MG/DL (0.2-1.0); BLOOD UREA NITROGEN 13 MG/DL (7-18); CALCIUM LEVEL 8.8 MG/DL (8.8-10.2); CARBON DIOXIDE LEVEL 31 MEQ/L (21-32); CHLORIDE LEVEL 102 MEQ/L (98-107); CREATININE FOR GFR 0.71 MG/DL (0.70-1.30); GLOMERULAR FILTRATION RATE > 60.0 (>42); GLUCOSE, FASTING 109 MG/DL (83-110); POTASSIUM SERUM 3.9 MEQ/L (3.5-5.1); SODIUM LEVEL 140 MEQ/L (136-145); TOTAL PROTEIN 6.7 GM/DL (6.4-8.2)
--- NOTE | 2017-01-14 17:55 | ECGEPIP ---
Stationary ECG Study [facility] - ED Test Date: 2017-01-14 Pat Name: THAO FORDE Department: Room: - Gender: M Professor Of Medicine: christopher : 1940 Requested By: LILIAN Woodruff Order Number: [id number] Reading MD: Lucía Nesbitt Measurements Intervals Lyman Rate: 86 P: 57 AL: 166 QRS: 56 QRSD: 126 T: 14 QT: 338 QTc: 406 Interpretive Statements SINUS RHYTHM MODERATE INTRAVENTRICULAR CONDUCTION DELAY LOW VOLTAGE PRWP INCREASED RATE 12/08/16 Electronically Signed On 01-14-2017 17:55:37 EST by Lucía Nesbitt
[2017-01-14] MEDS ORDERED: LEVO750T13 PO (18:25)
[2017-01-14] MEDS ORDERED: PRED20TA PO (18:27)
[2017-01-14] MEDS ORDERED: methylPREDNISolone INJ 125 MG/2 ML VIAL (J2930) IV ONE (18:30)
[2017-01-14] MEDS ORDERED: LevoFLOXacin 500 MG TABLET PO ONE (18:30)
[2017-01-14 19:25] VITALS: BP 118/59
--- NOTE | 2017-01-15 08:10 | REP ---
Chest two views History: Cough Increased density is present in the left upper and lower lobes consistent with an infiltrate that is unchanged compared to the previous study. The right lung is clear. The heart is normal in size. The pulmonary vasculature is normal in appearance. Degenerative change is present in the thoracic spine. Impression: Left upper lower lobe infiltrates unchanged compared to the previous study. Signed by Clifford Mantilla MD 01/15/2017 10:05 A
== END 2017-01-14 19:33 | disposition home or self-care (01) ==
LOC: M ED 16:18
DX: R06.02 Shortness of breath (principal); C34.92 Malignant neoplasm of unspecified part of left bronchus or lung
CPT/HCPCS: 36415; 71020; 80048; 80076; 83880; 85025; 87040; 93005; 93041; 94760; 96374; 99285; J2930

== ENCOUNTER → 2017-01-16 | Outpatient (CLI) | payer MEDICARE ==
[~2017-01-16] MED LIST changes: +LEVO750T13 PO; +PRED20TA PO
--- NOTE | 2017-01-17 09:08 | RADONC ---
RADIATION ONCOLOGY CONSULTATION NOTE DATE: 01/16/2017 CHART NUMBER: [id number] DIAGNOSIS: Left lower lobe lung cancer. STAGE: In progress. ECOG PERFORMANCE STATUS: Zero. CONSULTATION NOTE: Mr. 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 HISTORY OF PRESENT ILLNESS: The patient was in his usual state of health but has had increasing shortness of breath. On 11/29/2016, a chest x-ray was undertaken and showed an infiltrate in the lingula. On 12/08/2016, a CT scan was done and showed dense consolidation in the lingular segment of the left upper and lower lobe regions. There was a small left pleural effusion. On 01/12/2017, the patient underwent fine needle aspiration biopsy of his left hilum and left lower lobe, as well as an endobronchial biopsy and pathology revealed a moderately differentiated adenocarcinoma. The patient has not yet undergone full workup and is presenting to us for discussion of possible external beam radiation therapy. Pulmonary function tests were apparently done Monday, but the results are not available. In addition, a PET scan is scheduled for Monday. PAST MEDICAL HISTORY: The patient's past medical history is positive for bladder cancer in 2008. He reports hypertension and cataracts. He had surgical excision of his bladder cancer at [facility] in the past. ALLERGIES: The patient has NO KNOWN DRUG ALLERGIES. SOCIAL HISTORY: The patient had smoked two to three packs of cigarettes per day for many years. He does not abuse alcohol. FAMILY HISTORY: The patient's family history is positive for a father with stomach cancer. REVIEW OF SYSTEMS The patient's review of systems is positive for shortness of breath, decreased energy and anxiety. He has physical limitations secondary to his shortness of breath. He reports that he has to stop on a staircase at least twice to catch his breath for each flight of steps he takes. His reports that he sometimes just starts having difficulty breathing sitting in place. He denies nausea, vomiting, fevers, chills, night sweats, diplopia, headaches, rectal bleeding urinary or bowel difficulties, bone pain or neurological problems. VITAL SIGNS: O2 saturation 93%, blood pressure 118/70, temperature 98.9, pulse 90, respirations 18, height 6 feet 4 inches, weight 244 pounds. PHYSICAL EXAMINATION: The patient is a well-developed, well-nourished male in no acute distress. HEENT exam is normocephalic, atraumatic. Extraocular movements are intact. There is no palpable cervical, supraclavicular, infraclavicular, axillary, or inguinal lymphadenopathy present. Lungs are clear to auscultation and percussion. Heart has a regular rate and rhythm. Abdomen is benign with no hepatosplenomegaly, masses, or tenderness. Rectal examination reveals a normal anal sphincter tone. His prostate is smooth with no evidence of nodularity. Skeletal examination reveals no tenderness to pressure or percussion of the bony skeleton. Extremities reveal no clubbing, cyanosis, or edema. Neurologic exam is grossly intact, as is the remainder of the physical examination. ASSESSMENT: Mr. Tinsley is presenting to us today with what appears to be a left-sided moderately differentiated adenocarcinoma of the lung. He is presently undergoing staging workup, including a CT scan, which is scheduled for Monday. I have discussed with the patient in detail the potential benefits, as well as possible acute and chronic sequelae of external beam radiation therapy. We discussed logistics of treatment planning, simulation and subsequent fractionated daily radiation treatments. I have scheduled the patient for a differential lung scan to be undertaken. In addition, I am setting him up for discussion at our multidisciplinary tumor conference. I am also referring him to medical oncology for the expert opinion of our medical oncologist. We will coordinate our care with them pending all the information necessary. Thank you for allowing us to participate in the care of this very pleasant gentleman. If I can be of any further assistance or provide you with any information, please feel free to contact me at anytime. As always, warm regards. Alonso Collins MD cc: Yair Bobo, DO [facility] JACINTA Dixon
== END ==
LOC: M ONCR 10:28
PROVIDERS: ATTEND Radiology Radiation Oncology
DX: C34.92 Malignant neoplasm of unspecified part of left bronchus or lung (principal)

== ENCOUNTER → 2017-01-18 | Outpatient (CLI) | payer MEDICARE ==
--- NOTE | 2017-01-18 21:03 | REP ---
Whole body PET CT scan for evaluation of lung cancer: Comparison is the chest CT dated 12/08/2016. Whole-body scanning is performed from skull base to the upper thighs. There are no comparison PET CT scans. Neck and supraclavicular areas: There are no hypermetabolic foci. There is artifactual uptake in the tongue, soft palate and submandibular salivary gland. There is vascular artifact at the thoracic inlet. Chest: The known large mass in the left lung upper lobe demonstrates markedly hypermetabolic uptake centrally with a maximum standard uptake value of 8.14. The periphery of this mass demonstrates hypermetabolic uptake that is less intense with a maximal standard uptake value of 4.8. There is atelectasis of the lung parenchyma at the periphery of this mass, likely from compression. There are no hypermetabolic foci in the mediastinum or right hilus. The left hilus is obscured by the left lung mass. There is small a hypermetabolic focus in the left lateral chest wall in the intercostal space between the left third and fourth ribs laterally with a standard uptake value of 4.6. There are are no other foci in the chest. Abdomen, pelvis and upper thighs: There are no hypermetabolic foci. Specifically there are no adrenal or hepatic foci. There are no mesenteric or retroperitoneal foci. There is nonspecific bowel uptake. There is physiologic renal radiotracer excretion. There is mild uptake throughout the vertebral bodies of the thoracic and lumbar spine with a maximal standard uptake value of 3.6. This is nonspecific. No definite lytic, blastic or destructive skeletal changes are identified. Impression: There is hypermetabolic uptake in the patient's known left lung mass as described. There is a small focus of hypermetabolic uptake in the intercostal space of the left third and fourth ribs laterally. There are no mediastinal foci. There are no right hilar foci. The left hilus is obscured by the left lung mass. There is a nonspecific borderline hypermetabolic uptake throughout the thoracic and lumbar vertebral bodies. Graph the studies performed with 10 mCi of F 18 FDG. Signed by Alonso Sykes MD 01/18/2017 08:55 P
== END ==
LOC: M PLARAD 08:00
PROVIDERS: ATTEND Internal Medicine Pulmonary Disease
DX: C34.90 Malignant neoplasm of unspecified part of unspecified bronchus or lung (principal)
CPT/HCPCS: 78815; A9552

== ENCOUNTER → 2017-01-26 | Outpatient (CLI) | payer MEDICARE ==
--- NOTE | 2017-01-26 10:43 | REP ---
PA and lateral chest: Comparisons are the portable chest of 01/12/2017, portable chest and 12/08/[address] of 12/08/2016. There is persisting increased radiodensity throughout the left hemithorax anteriorly, unchanged from the prior study. Right lung is clear. No pleural effusions. Cardiac size cannot be assessed as the left cardiac margin is obscured. The left hilus is obscured. Right hilus is unremarkable. Impression: Persisting diffuse increased density throughout the left lung anteriorly , not significantly changed from recent comparison studies. Signed by Alonso Sykes MD 01/26/2017 10:35 A
--- NOTE | 2017-01-26 10:56 | REP ---
DIFFERENTIAL LUNG VENTILATION AND PERFUSION SCAN: Following the intravenous administration of 1 mCi of technetium 99m tagged MAA and the inhalation of 2 mCi of technetium 99m DTPA Aerosol, images of the lungs are obtained in the anterior and posterior projections. Extensive matching ventilation and perfusion defects are seen throughout the left lung. Differential counts are obtained in the upper, middle and lower thirds of each lung. The mean perfusion of the left lung is 15.2% and of the right lung is 84.8%. The mean ventilation of the left lung is 10.9% and right lung 89.1%. Signed by Alonso Hackett MD 01/26/2017 10:59 A
== END ==
LOC: M RAD 09:49
PROVIDERS: ATTEND Radiology Radiation Oncology
DX: C34.90 Malignant neoplasm of unspecified part of unspecified bronchus or lung (principal)
CPT/HCPCS: 71020; 78598; A9540; A9567

== ENCOUNTER 2017-01-31 10:59 | Outpatient (RCR) | payer MEDICARE | END 2017-02-12 | LOC: M ONCR 10:59 | DX: C34.32 Malignant neoplasm of lower lobe, left bronchus or lung (principal) | CPT/HCPCS: 77300 ==

== ENCOUNTER → 2017-01-31 | Outpatient (CLI) | payer MEDICARE | LOC: M RAD 10:11 | PROVIDERS: ATTEND Radiology Radiation Oncology | DX: C34.90 Malignant neoplasm of unspecified part of unspecified bronchus or lung (principal) ==

== ENCOUNTER 2017-02-14 11:06 | Outpatient (RCR) | payer MEDICARE | END 2017-02-19 14:03 | disposition home or self-care (01) | LOC: M ONCR 11:06 | DX: C34.32 Malignant neoplasm of lower lobe, left bronchus or lung (principal) | CPT/HCPCS: 77336 ==

== ENCOUNTER 2017-02-19 07:52 | Inpatient (IN) | payer MEDICARE ==
[2017-02-19 08:43] LABS: BASO % 0.1 % (0.0-1.0); HEMATOCRIT 39.2 % (42.0-52.0); HEMOGLOBIN 12.9 g/dl (14.0-18.0); IMMATURE GRANULOCYTE # 0.1 10^3/uL (0-0); IMMATURE GRANULOCYTE % 0.8 % (0-0); LYMPH # 0.3 10^3/uL (1.5-4.5); LYMPH % 3.3 % (24.0-44.0); MEAN CORPUSCULAR HEMOGLOBIN 28.1 pg (27.0-33.0); MEAN CORPUSCULAR HGB CONC 32.9 g/dl (32.0-36.5); MEAN CORPUSCULAR VOLUME 85.4 fl (80.0-96.0); MONO # 0.1 10^3/uL (0.0-0.8); MONO % 0.5 % (0.0-5.0); NEUTROPHILS # 9.5 10^3/uL (1.8-7.7); NEUTROPHILS % 95.3 % (36.0-66.0); PLATELET COUNT, AUTOMATED 402 10^3/uL (150-450); RED BLOOD COUNT 4.59 10^6/uL (4.30-6.10)
[2017-02-19] MEDS: ONDANSETRON 4MG/2ML VIAL (J2405) IV (08:52)
[2017-02-19 08:58] LABS: ALBUMIN 2.6 GM/DL (3.2-5.2); ALKALINE PHOSPHATASE 177 U/L (45-117); ALT/SGPT 18 U/L (12-78); ANION GAP 8 MEQ/L (8-16); AST/SGOT 20 U/L (7-37); BILIRUBIN,DIRECT 0.2 MG/DL (0.0-0.2); BILIRUBIN,TOTAL 0.7 MG/DL (0.2-1.0); BLOOD UREA NITROGEN 15 MG/DL (7-18); CALCIUM LEVEL 8.4 MG/DL (8.8-10.2); CARBON DIOXIDE LEVEL 29 MEQ/L (21-32); CHLORIDE LEVEL 94 MEQ/L (98-107); CPK CREATINE PHOSPHOKINASE 29 U/L (39-308); CREATININE FOR GFR 0.68 MG/DL (0.70-1.30); GLOMERULAR FILTRATION RATE > 60.0 (>42); GLUCOSE, FASTING 134 MG/DL (83-110); MB/CK RELATIVE INDEX 3.44 (< OR =4); POTASSIUM SERUM 3.4 MEQ/L (3.5-5.1); SODIUM LEVEL 131 MEQ/L (136-145); TOTAL PROTEIN 6.9 GM/DL (6.4-8.2); TROPONIN I < 0.02 NG/ML (< 0.10)
[2017-02-19] MEDS ORDERED: ISOVUE-370 76% 100ML VIAL (Q9967) As Ordered (09:15)
[2017-02-19 09:24] LABS: VENOUS BASE EXCESS -4.3 (-2.0-2.0); VENOUS HCO3 18.5 MEQ/L (23.0-27.0); VENOUS O2 SATURATION 95.7 % (60.0-80.0); VENOUS PARTIAL PRESSURE CO2 27.6 mmHg (38.0-50.0); VENOUS PARTIAL PRESSURE O2 84.7 mmHg (30.0-50.0); VENOUS PH 7.444 UNITS (7.330-7.430); VENOUS STANDARD HCO3 20.9 MEQ/L; VENOUS TOTAL CO2 19.3 MEQ/L (24.0-28.0)
[2017-02-19 09:35] LABS: LACTIC ACID SEPSIS PROTOCOL 1.5 MMOL/L (0.4-2.0)
[2017-02-19] MEDS: LevoFLOXacin IV 750 MG in APPROPRIATE DILUENT 1 EA IV (10:15)
[2017-02-19] MEDS ORDERED: ONDANSETRON 4MG/2ML VIAL (J2405) IV (13:00)
[2017-02-19] MEDS ORDERED: ALBUTEROL SULFATE 2.5 MG/0.5 ML INH NEB SOLN INH (13:30)
[2017-02-19] MEDS: methylPREDNISolone INJ 125 MG/2 ML VIAL (J2930) IV ×2 (14:34→23:54)
[2017-02-19] MEDS: FOLIC ACID 1 MG TAB PO (14:34)
[2017-02-19] MEDS: POTASSIUM CHLORIDE 10 MEQ SR TABLET PO (14:34)
[2017-02-19] MEDS: IPRATROPIUM 0.5MG/ALBUTEROL 2.5MG INH SOL UD 3ML (DUONEB)(J7620) NEB ×2 (15:28→20:19)
[2017-02-19] MEDS: PIPERACILLIN/TAZOBACTAM SOD 3.375 GM in APPROPRIATE DILUENT 1 EA IV ×2 (17:38→23:55)
[2017-02-19] MEDS: ACETAMINOPHEN TAB 650MG DOSE (2X325MG) PO (20:37)
[2017-02-19] MEDS: TAMSULOSIN 0.4 MG CAP PO (20:37)
[2017-02-19] MEDS: LATANOPROST 0.005% OPHTH SOLN 2.5 ML OU (20:38)
[2017-02-19] MEDS ORDERED: COSOPT OU (21:00)
[2017-02-20 02:56] LABS: ABG BASE EXCESS -0.4 (-2.0-2.0); ABG HCO3 21.3 MEQ/L (22.0-26.0); ABG O2 SATURATION 99.1 % (95.0-99.0); ABG PARTIAL PRESSURE CO2 25.6 mmHg (35.0-45.0); ABG PARTIAL PRESSURE O2 152.6 mmHg (75.0-100.0); ABG STANDARD HCO3 24.2 MEQ/L (22.0-26.0); ABG pH (ARTERIAL) 7.537 UNITS (7.350-7.450)
[2017-02-20 04:35] LABS: HEMATOCRIT 33.4 % (42.0-52.0); HEMOGLOBIN 11.4 g/dl (14.0-18.0); MEAN CORPUSCULAR HEMOGLOBIN 28.5 pg (27.0-33.0); MEAN CORPUSCULAR HGB CONC 34.1 g/dl (32.0-36.5); MEAN CORPUSCULAR VOLUME 83.5 fl (80.0-96.0); PLATELET COUNT, AUTOMATED 326 10^3/uL (150-450); RED CELL DISTRIBUTION WIDTH 13.8 % (11.5-14.5); WHITE BLOOD COUNT 5.2 10^3/uL (4.0-10.0)
[2017-02-20 04:57] LABS: ANION GAP 10 MEQ/L (8-16); BLOOD UREA NITROGEN 14 MG/DL (7-18); CALCIUM LEVEL 8.4 MG/DL (8.8-10.2); CARBON DIOXIDE LEVEL 27 MEQ/L (21-32); CHLORIDE LEVEL 94 MEQ/L (98-107); CREATININE FOR GFR 0.68 MG/DL (0.70-1.30); GLOMERULAR FILTRATION RATE > 60.0 (>42); GLUCOSE, FASTING 160 MG/DL (83-110); MAGNESIUM LEVEL 1.9 MG/DL (1.8-2.4); POTASSIUM SERUM 3.1 MEQ/L (3.5-5.1); SODIUM LEVEL 131 MEQ/L (136-145)
[2017-02-20] MEDS: PIPERACILLIN/TAZOBACTAM SOD 3.375 GM in APPROPRIATE DILUENT 1 EA IV ×4 (06:27→23:29)
[2017-02-20] MEDS: methylPREDNISolone INJ 125 MG/2 ML VIAL (J2930) IV ×3 (06:27→23:29)
[2017-02-20] MEDS: IPRATROPIUM 0.5MG/ALBUTEROL 2.5MG INH SOL UD 3ML (DUONEB)(J7620) NEB ×4 (08:40→20:56)
[2017-02-20] MEDS: FINASTERIDE 5 MG TAB PO (09:35)
[2017-02-20] MEDS: FOLIC ACID 1 MG TAB PO (09:35)
[2017-02-20] MEDS: ENOXAPARIN 40 MG/0.4 ML SYRINGE (J1650) SC (09:35)
[2017-02-20] MEDS: POTASSIUM CHLORIDE 10 MEQ SR TABLET PO (09:36)
[2017-02-20] MEDS: ACETAMINOPHEN TAB 650MG DOSE (2X325MG) PO ×2 (12:06→21:43)
[2017-02-20] MEDS: LOPERAMIDE 2 MG CAP PO (12:59)
[2017-02-20] MEDS: BREO INH (16:35)
[2017-02-20] MEDS: LATANOPROST 0.005% OPHTH SOLN 2.5 ML OU (20:15)
[2017-02-20] MEDS: COSOPT OU (20:15)
[2017-02-20] MEDS: TAMSULOSIN 0.4 MG CAP PO (20:15)
[2017-02-20] MEDS ORDERED: ENTER DRUG NAME HERE (PATIENT'S OWN MED) OU (21:00)
[2017-02-20 23:31] LABS: ABG BASE EXCESS 4.3 (-2.0-2.0); ABG HCO3 27.6 MEQ/L (22.0-26.0); ABG O2 SATURATION 98.4 % (95.0-99.0); ABG PARTIAL PRESSURE CO2 36.6 mmHg (35.0-45.0); ABG PARTIAL PRESSURE O2 109.1 mmHg (75.0-100.0); ABG STANDARD HCO3 28.4 MEQ/L (22.0-26.0); ABG TOTAL CO2 28.8 MEQ/L (23.0-31.0); ABG pH (ARTERIAL) 7.496 UNITS (7.350-7.450)
[2017-02-21 05:44] LABS: HEMATOCRIT 32.3 % (42.0-52.0); HEMOGLOBIN 10.9 g/dl (14.0-18.0); MEAN CORPUSCULAR HGB CONC 33.7 g/dl (32.0-36.5); PLATELET COUNT, AUTOMATED 277 10^3/uL (150-450); RED BLOOD COUNT 3.89 10^6/uL (4.30-6.10); RED CELL DISTRIBUTION WIDTH 13.7 % (11.5-14.5); WHITE BLOOD COUNT 4.5 10^3/uL (4.0-10.0)
[2017-02-21 05:56] LABS: ANION GAP 10 MEQ/L (8-16); BLOOD UREA NITROGEN 15 MG/DL (7-18); CALCIUM LEVEL 8.2 MG/DL (8.8-10.2); CARBON DIOXIDE LEVEL 28 MEQ/L (21-32); CHLORIDE LEVEL 94 MEQ/L (98-107); CREATININE FOR GFR 0.73 MG/DL (0.70-1.30); GLOMERULAR FILTRATION RATE > 60.0 (>42); GLUCOSE, FASTING 140 MG/DL (83-110); MAGNESIUM LEVEL 2.1 MG/DL (1.8-2.4); POTASSIUM SERUM 3.3 MEQ/L (3.5-5.1); SODIUM LEVEL 132 MEQ/L (136-145)
[2017-02-21] MEDS: methylPREDNISolone INJ 125 MG/2 ML VIAL (J2930) IV ×3 (06:03→23:58)
[2017-02-21] MEDS: PIPERACILLIN/TAZOBACTAM SOD 3.375 GM in APPROPRIATE DILUENT 1 EA IV ×4 (06:03→23:59)
[2017-02-21] MEDS: BREO INH (07:52)
[2017-02-21] MEDS: IPRATROPIUM 0.5MG/ALBUTEROL 2.5MG INH SOL UD 3ML (DUONEB)(J7620) NEB ×4 (07:52→21:22)
[2017-02-21] MEDS: FINASTERIDE 5 MG TAB PO (08:30)
[2017-02-21] MEDS: FOLIC ACID 1 MG TAB PO (08:30)
[2017-02-21] MEDS: COSOPT OU ×2 (08:30→21:05)
[2017-02-21] MEDS: ENOXAPARIN 40 MG/0.4 ML SYRINGE (J1650) SC (08:30)
[2017-02-21] MEDS: ACETAMINOPHEN TAB 650MG DOSE (2X325MG) PO (08:30)
[2017-02-21] MEDS: POTASSIUM CHLORIDE 10 MEQ SR TABLET PO (08:30)
[2017-02-21] MEDS: METOPROLOL TART 25 MG TABLET PO (16:18)
[2017-02-21] MEDS: ENOXAPARIN 100MG/1ML SYRINGE (J1650) SC (16:18)
[2017-02-21] MEDS: METOPROLOL 5 MG/5 ML VIAL IV ×3 (17:22→17:35)
[2017-02-21] MEDS: DIGOXIN INJ 0.5 MG/2 ML AMP (J1160) IV (17:44)
[2017-02-21] MEDS: TAMSULOSIN 0.4 MG CAP PO (21:04)
[2017-02-21] MEDS: LATANOPROST 0.005% OPHTH SOLN 2.5 ML OU (21:06)
[2017-02-22] MEDS: METOPROLOL TART 25 MG TABLET PO ×2 (00:01→05:12)
[2017-02-22] MEDS: ENOXAPARIN 100MG/1ML SYRINGE (J1650) SC ×2 (04:50→16:08)
[2017-02-22] MEDS: PIPERACILLIN/TAZOBACTAM SOD 3.375 GM in APPROPRIATE DILUENT 1 EA IV ×3 (05:12→18:08)
[2017-02-22 05:49] LABS: HEMATOCRIT 34.9 % (42.0-52.0); HEMOGLOBIN 11.6 g/dl (14.0-18.0); MEAN CORPUSCULAR HEMOGLOBIN 27.7 pg (27.0-33.0); MEAN CORPUSCULAR HGB CONC 33.2 g/dl (32.0-36.5); MEAN CORPUSCULAR VOLUME 83.3 fl (80.0-96.0); PLATELET COUNT, AUTOMATED 255 10^3/uL (150-450); RED BLOOD COUNT 4.19 10^6/uL (4.30-6.10); RED CELL DISTRIBUTION WIDTH 13.4 % (11.5-14.5); WHITE BLOOD COUNT 4.4 10^3/uL (4.0-10.0)
[2017-02-22 06:11] LABS: ANION GAP 9 MEQ/L (8-16); BLOOD UREA NITROGEN 19 MG/DL (7-18); CALCIUM LEVEL 8.7 MG/DL (8.8-10.2); CARBON DIOXIDE LEVEL 31 MEQ/L (21-32); CHLORIDE LEVEL 92 MEQ/L (98-107); CREATININE FOR GFR 0.83 MG/DL (0.70-1.30); GLOMERULAR FILTRATION RATE > 60.0 (>42); GLUCOSE, FASTING 123 MG/DL (83-110); POTASSIUM SERUM 3.3 MEQ/L (3.5-5.1); SODIUM LEVEL 132 MEQ/L (136-145)
[2017-02-22] MEDS: methylPREDNISolone INJ 125 MG/2 ML VIAL (J2930) IV (06:42)
[2017-02-22] MEDS: IPRATROPIUM 0.5MG/ALBUTEROL 2.5MG INH SOL UD 3ML (DUONEB)(J7620) NEB ×4 (07:42→20:00)
[2017-02-22] MEDS: BREO INH (07:43)
[2017-02-22] MEDS: VANCOMYCIN HCL 1,000 MG, VIAL MATE ADAPTER 1 EACH in D5W 250 ML IV ×3 (09:30→20:30)
[2017-02-22] MEDS: FOLIC ACID 1 MG TAB PO (09:37)
[2017-02-22] MEDS: FINASTERIDE 5 MG TAB PO (09:37)
[2017-02-22] MEDS: POTASSIUM CHLORIDE 10 MEQ SR TABLET PO ×2 (09:38→13:17)
[2017-02-22] MEDS: COSOPT OU ×2 (09:40→20:30)
[2017-02-22] MEDS: METOPROLOL TART 50 MG TAB PO ×2 (13:18→18:14)
[2017-02-22] MEDS: methylPREDNISolone INJ 40 MG/1 ML VIAL (J2920) IV (18:08)
[2017-02-22] MEDS: LOPERAMIDE 2 MG CAP PO ×2 (18:08→20:42)
[2017-02-22] MEDS: TAMSULOSIN 0.4 MG CAP PO (20:30)
[2017-02-22] MEDS: LATANOPROST 0.005% OPHTH SOLN 2.5 ML OU (20:30)
[2017-02-23] MEDS: METOPROLOL TART 50 MG TAB PO ×4 (00:11→17:15)
[2017-02-23] MEDS: ACETAMINOPHEN TAB 650MG DOSE (2X325MG) PO ×2 (00:13→21:39)
[2017-02-23] MEDS: PIPERACILLIN/TAZOBACTAM SOD 3.375 GM in APPROPRIATE DILUENT 1 EA IV ×4 (00:13→18:21)
[2017-02-23] MEDS: ENOXAPARIN 100MG/1ML SYRINGE (J1650) SC ×2 (04:59→15:00)
[2017-02-23] MEDS: LOPERAMIDE 2 MG CAP PO ×4 (06:54→17:21)
[2017-02-23] MEDS: methylPREDNISolone INJ 40 MG/1 ML VIAL (J2920) IV ×2 (06:54→18:37)
[2017-02-23] MEDS: IPRATROPIUM 0.5MG/ALBUTEROL 2.5MG INH SOL UD 3ML (DUONEB)(J7620) NEB ×4 (07:21→21:24)
[2017-02-23] MEDS: BREO INH (07:21)
[2017-02-23 09:33] LABS: HEMATOCRIT 33.2 % (42.0-52.0); HEMOGLOBIN 11.2 g/dl (14.0-18.0); MEAN CORPUSCULAR HEMOGLOBIN 28.4 pg (27.0-33.0); MEAN CORPUSCULAR HGB CONC 33.7 g/dl (32.0-36.5); MEAN CORPUSCULAR VOLUME 84.1 fl (80.0-96.0); PLATELET COUNT, AUTOMATED 175 10^3/uL (150-450); RED BLOOD COUNT 3.95 10^6/uL (4.30-6.10); RED CELL DISTRIBUTION WIDTH 13.2 % (11.5-14.5); WHITE BLOOD COUNT 3.8 10^3/uL (4.0-10.0)
[2017-02-23 09:52] LABS: ANION GAP 8 MEQ/L (8-16); BLOOD UREA NITROGEN 18 MG/DL (7-18); CALCIUM LEVEL 8.3 MG/DL (8.8-10.2); CARBON DIOXIDE LEVEL 32 MEQ/L (21-32); CHLORIDE LEVEL 92 MEQ/L (98-107); CREATININE FOR GFR 0.73 MG/DL (0.70-1.30); GLOMERULAR FILTRATION RATE > 60.0 (>42); GLUCOSE, FASTING 111 MG/DL (83-110); MAGNESIUM LEVEL 2.1 MG/DL (1.8-2.4); POTASSIUM SERUM 3.1 MEQ/L (3.5-5.1); SODIUM LEVEL 132 MEQ/L (136-145)
[2017-02-23] MEDS: LACTOBACILLUS ACIDOPHILUS CAP (BACID) PO ×2 (10:14→21:38)
[2017-02-23] MEDS: POTASSIUM CHLORIDE 10 MEQ SR TABLET PO ×2 (10:14→17:14)
[2017-02-23] MEDS: FINASTERIDE 5 MG TAB PO (10:14)
[2017-02-23] MEDS: FOLIC ACID 1 MG TAB PO (10:15)
[2017-02-23] MEDS: VANCOMYCIN HCL 1,000 MG, VIAL MATE ADAPTER 1 EACH in D5W 250 ML IV ×2 (10:15→21:38)
[2017-02-23] MEDS: COSOPT OU ×2 (10:15→21:40)
[2017-02-23] MEDS: KCL 10MEQ IN 100ML SWI (KRUN) 10 MEQ in APPROPRIATE DILUENT 1 EA IV ×4 (13:30→17:22)
[2017-02-23 20:57] LABS: VANCOMYCIN LEVEL TROUGH 10.7 UG/ML (10.0-20.0)
[2017-02-23] MEDS: TAMSULOSIN 0.4 MG CAP PO (21:38)
[2017-02-23] MEDS: LATANOPROST 0.005% OPHTH SOLN 2.5 ML OU (21:40)
[2017-02-23] MEDS: SLF 3 ML SYR IV (21:41)
[2017-02-24] MEDS: VANCOMYCIN HCL 500 MG in D5W MINI-BAG PLUS 100 ML IV (00:08)
[2017-02-24] MEDS: METOPROLOL TART 50 MG TAB PO ×4 (00:15→18:01)
[2017-02-24] MEDS: PIPERACILLIN/TAZOBACTAM SOD 3.375 GM in APPROPRIATE DILUENT 1 EA IV ×4 (01:19→18:57)
[2017-02-24] MEDS: VANCOMYCIN HCL 1,000 MG, VIAL MATE ADAPTER 1 EACH in D5W 250 ML IV ×2 (04:26→17:50)
[2017-02-24] MEDS: ENOXAPARIN 100MG/1ML SYRINGE (J1650) SC ×2 (04:27→17:51)
[2017-02-24] MEDS: methylPREDNISolone INJ 40 MG/1 ML VIAL (J2920) IV ×2 (06:21→19:46)
[2017-02-24] MEDS: SLF 3 ML SYR IV ×3 (06:21→20:37)
[2017-02-24 06:48] LABS: HEMATOCRIT 31.2 % (42.0-52.0); HEMOGLOBIN 10.7 g/dl (14.0-18.0); MEAN CORPUSCULAR HEMOGLOBIN 28.4 pg (27.0-33.0); MEAN CORPUSCULAR HGB CONC 34.3 g/dl (32.0-36.5); MEAN CORPUSCULAR VOLUME 82.8 fl (80.0-96.0); PLATELET COUNT, AUTOMATED 126 10^3/uL (150-450); RED BLOOD COUNT 3.77 10^6/uL (4.30-6.10); RED CELL DISTRIBUTION WIDTH 13.4 % (11.5-14.5); WHITE BLOOD COUNT 2.9 10^3/uL (4.0-10.0)
[2017-02-24 07:10] LABS: ANION GAP 8 MEQ/L (8-16); BLOOD UREA NITROGEN 17 MG/DL (7-18); CARBON DIOXIDE LEVEL 28 MEQ/L (21-32); CHLORIDE LEVEL 96 MEQ/L (98-107); CREATININE FOR GFR 0.61 MG/DL (0.70-1.30); GLOMERULAR FILTRATION RATE > 60.0 (>42); GLUCOSE, FASTING 137 MG/DL (83-110); MAGNESIUM LEVEL 2.2 MG/DL (1.8-2.4); POTASSIUM SERUM 3.5 MEQ/L (3.5-5.1); SODIUM LEVEL 132 MEQ/L (136-145)
[2017-02-24] MEDS: IPRATROPIUM 0.5MG/ALBUTEROL 2.5MG INH SOL UD 3ML (DUONEB)(J7620) NEB ×4 (08:28→20:23)
[2017-02-24] MEDS: BREO INH (08:28)
[2017-02-24] MEDS: FINASTERIDE 5 MG TAB PO (09:14)
[2017-02-24] MEDS: FOLIC ACID 1 MG TAB PO (09:15)
[2017-02-24] MEDS: COSOPT OU ×2 (09:15→20:37)
[2017-02-24] MEDS: LACTOBACILLUS ACIDOPHILUS CAP (BACID) PO ×2 (09:15→20:36)
[2017-02-24] MEDS: POTASSIUM CHLORIDE 10 MEQ SR TABLET PO (09:15)
[2017-02-24] MEDS: LATANOPROST 0.005% OPHTH SOLN 2.5 ML OU (20:37)
[2017-02-24] MEDS: TAMSULOSIN 0.4 MG CAP PO (20:37)
[2017-02-25] MEDS: PIPERACILLIN/TAZOBACTAM SOD 3.375 GM in APPROPRIATE DILUENT 1 EA IV ×4 (00:58→17:51)
[2017-02-25 03:52] LABS: HEMATOCRIT 32.5 % (42.0-52.0); HEMOGLOBIN 11.1 g/dl (14.0-18.0); MEAN CORPUSCULAR HEMOGLOBIN 28.2 pg (27.0-33.0); MEAN CORPUSCULAR HGB CONC 34.2 g/dl (32.0-36.5); MEAN CORPUSCULAR VOLUME 82.7 fl (80.0-96.0); PLATELET COUNT, AUTOMATED 119 10^3/uL (150-450); RED BLOOD COUNT 3.93 10^6/uL (4.30-6.10); RED CELL DISTRIBUTION WIDTH 13.3 % (11.5-14.5); WHITE BLOOD COUNT 3.7 10^3/uL (4.0-10.0)
[2017-02-25 04:07] LABS: ANION GAP 5 MEQ/L (8-16); BLOOD UREA NITROGEN 15 MG/DL (7-18); CALCIUM LEVEL 8.2 MG/DL (8.8-10.2); CARBON DIOXIDE LEVEL 31 MEQ/L (21-32); CHLORIDE LEVEL 95 MEQ/L (98-107); CREATININE FOR GFR 0.73 MG/DL (0.70-1.30); GLOMERULAR FILTRATION RATE > 60.0 (>42); GLUCOSE, FASTING 123 MG/DL (83-110); MAGNESIUM LEVEL 2.1 MG/DL (1.8-2.4); POTASSIUM SERUM 3.5 MEQ/L (3.5-5.1); SODIUM LEVEL 131 MEQ/L (136-145)
[2017-02-25] MEDS: VANCOMYCIN HCL 1,000 MG, VIAL MATE ADAPTER 1 EACH in D5W 250 ML IV ×3 (04:43→22:56)
[2017-02-25] MEDS: ENOXAPARIN 100MG/1ML SYRINGE (J1650) SC ×2 (05:38→16:06)
[2017-02-25] MEDS: METOPROLOL TART 50 MG TAB PO ×4 (06:00→17:26)
[2017-02-25] MEDS: SLF 3 ML SYR IV ×3 (06:00→22:00)
[2017-02-25] MEDS: methylPREDNISolone INJ 40 MG/1 ML VIAL (J2920) IV ×2 (06:34→18:31)
[2017-02-25] MEDS: IPRATROPIUM 0.5MG/ALBUTEROL 2.5MG INH SOL UD 3ML (DUONEB)(J7620) NEB ×4 (08:14→19:50)
[2017-02-25] MEDS: BREO INH (08:14)
[2017-02-25] MEDS: LACTOBACILLUS ACIDOPHILUS CAP (BACID) PO ×2 (09:12→22:53)
[2017-02-25] MEDS: FINASTERIDE 5 MG TAB PO (09:12)
[2017-02-25] MEDS: FOLIC ACID 1 MG TAB PO (09:13)
[2017-02-25] MEDS: COSOPT OU ×2 (09:13→22:53)
[2017-02-25] MEDS: POTASSIUM CHLORIDE 10 MEQ SR TABLET PO (09:13)
[2017-02-25] MEDS: LOPERAMIDE 2 MG CAP PO (11:39)
[2017-02-25 15:26] LABS: VANCOMYCIN LEVEL TROUGH 9.9 UG/ML (10.0-20.0)
[2017-02-25] MEDS: TAMSULOSIN 0.4 MG CAP PO (22:53)
[2017-02-25] MEDS: LATANOPROST 0.005% OPHTH SOLN 2.5 ML OU (22:54)
[2017-02-26] MEDS: PIPERACILLIN/TAZOBACTAM SOD 3.375 GM in APPROPRIATE DILUENT 1 EA IV ×5 (01:16→23:46)
[2017-02-26] MEDS: VANCOMYCIN HCL 1,000 MG, VIAL MATE ADAPTER 1 EACH in D5W 250 ML IV ×2 (04:48→15:22)
[2017-02-26 05:35] LABS: HEMATOCRIT 31.9 % (42.0-52.0); HEMOGLOBIN 10.9 g/dl (14.0-18.0); MEAN CORPUSCULAR HEMOGLOBIN 28.7 pg (27.0-33.0); MEAN CORPUSCULAR HGB CONC 34.2 g/dl (32.0-36.5); MEAN CORPUSCULAR VOLUME 83.9 fl (80.0-96.0); PLATELET COUNT, AUTOMATED 106 10^3/uL (150-450); RED CELL DISTRIBUTION WIDTH 13.7 % (11.5-14.5); WHITE BLOOD COUNT 4.8 10^3/uL (4.0-10.0)
[2017-02-26 05:41] LABS: ANION GAP 6 MEQ/L (8-16); BLOOD UREA NITROGEN 11 MG/DL (7-18); CARBON DIOXIDE LEVEL 32 MEQ/L (21-32); CHLORIDE LEVEL 94 MEQ/L (98-107); CREATININE FOR GFR 0.68 MG/DL (0.70-1.30); GLOMERULAR FILTRATION RATE > 60.0 (>42); GLUCOSE, FASTING 125 MG/DL (83-110); MAGNESIUM LEVEL 2.1 MG/DL (1.8-2.4); POTASSIUM SERUM 3.5 MEQ/L (3.5-5.1); SODIUM LEVEL 132 MEQ/L (136-145)
[2017-02-26] MEDS: ENOXAPARIN 100MG/1ML SYRINGE (J1650) SC ×2 (06:14→15:23)
[2017-02-26] MEDS: SLF 3 ML SYR IV ×3 (06:14→20:00)
[2017-02-26] MEDS: methylPREDNISolone INJ 40 MG/1 ML VIAL (J2920) IV (06:15)
[2017-02-26] MEDS: METOPROLOL TART 50 MG TAB PO ×5 (06:28→23:47)
[2017-02-26] MEDS: IPRATROPIUM 0.5MG/ALBUTEROL 2.5MG INH SOL UD 3ML (DUONEB)(J7620) NEB ×4 (07:45→19:41)
[2017-02-26] MEDS: BREO INH (07:46)
[2017-02-26] MEDS: LACTOBACILLUS ACIDOPHILUS CAP (BACID) PO ×2 (08:21→19:59)
[2017-02-26] MEDS: POTASSIUM CHLORIDE 10 MEQ SR TABLET PO (08:22)
[2017-02-26] MEDS: COSOPT OU ×2 (08:22→20:00)
[2017-02-26] MEDS: FINASTERIDE 5 MG TAB PO (08:22)
[2017-02-26] MEDS: FOLIC ACID 1 MG TAB PO (08:22)
[2017-02-26] MEDS: predniSONE 20 MG TAB PO (08:22)
[2017-02-26] MEDS: TAMSULOSIN 0.4 MG CAP PO (19:59)
[2017-02-26] MEDS: LATANOPROST 0.005% OPHTH SOLN 2.5 ML OU (20:00)
[2017-02-27] MEDS: ENOXAPARIN 100MG/1ML SYRINGE (J1650) SC ×2 (01:18→17:05)
[2017-02-27] MEDS: VANCOMYCIN HCL 1,000 MG, VIAL MATE ADAPTER 1 EACH in D5W 250 ML IV ×2 (04:50→17:03)
[2017-02-27] MEDS: PIPERACILLIN/TAZOBACTAM SOD 3.375 GM in APPROPRIATE DILUENT 1 EA IV ×3 (06:24→18:34)
[2017-02-27] MEDS: SLF 3 ML SYR IV ×5 (06:24→21:52)
[2017-02-27] MEDS: METOPROLOL TART 50 MG TAB PO ×3 (06:24→18:34)
[2017-02-27] MEDS: IPRATROPIUM 0.5MG/ALBUTEROL 2.5MG INH SOL UD 3ML (DUONEB)(J7620) NEB ×4 (08:00→21:08)
[2017-02-27] MEDS: BREO INH (08:17)
[2017-02-27 08:29] LABS: HEMATOCRIT 30.3 % (42.0-52.0); HEMOGLOBIN 10.4 g/dl (14.0-18.0); MEAN CORPUSCULAR HGB CONC 34.3 g/dl (32.0-36.5); MEAN CORPUSCULAR VOLUME 84.4 fl (80.0-96.0); PLATELET COUNT, AUTOMATED 114 10^3/uL (150-450); RED BLOOD COUNT 3.59 10^6/uL (4.30-6.10); RED CELL DISTRIBUTION WIDTH 14.2 % (11.5-14.5); WHITE BLOOD COUNT 7.6 10^3/uL (4.0-10.0)
[2017-02-27 08:50] LABS: ANION GAP 8 MEQ/L (8-16); BLOOD UREA NITROGEN 12 MG/DL (7-18); CALCIUM LEVEL 7.9 MG/DL (8.8-10.2); CARBON DIOXIDE LEVEL 31 MEQ/L (21-32); CHLORIDE LEVEL 93 MEQ/L (98-107); CREATININE FOR GFR 0.67 MG/DL (0.70-1.30); GLOMERULAR FILTRATION RATE > 60.0 (>42); GLUCOSE, FASTING 117 MG/DL (83-110); MAGNESIUM LEVEL 1.9 MG/DL (1.8-2.4); SODIUM LEVEL 132 MEQ/L (136-145)
[2017-02-27] MEDS: POTASSIUM CHLORIDE 10 MEQ SR TABLET PO ×2 (09:07→14:10)
[2017-02-27] MEDS: predniSONE 20 MG TAB PO (09:08)
[2017-02-27] MEDS: LACTOBACILLUS ACIDOPHILUS CAP (BACID) PO ×2 (09:08→21:52)
[2017-02-27] MEDS: FINASTERIDE 5 MG TAB PO (09:09)
[2017-02-27] MEDS: ACETAMINOPHEN TAB 650MG DOSE (2X325MG) PO (09:09)
[2017-02-27] MEDS: FOLIC ACID 1 MG TAB PO (09:09)
[2017-02-27] MEDS: COSOPT OU ×2 (09:12→23:43)
[2017-02-27 09:24] LABS: POTASSIUM SERUM 2.8 MEQ/L (3.5-5.1)
[2017-02-27] MEDS: LATANOPROST 0.005% OPHTH SOLN 2.5 ML OU (21:52)
[2017-02-27] MEDS: TAMSULOSIN 0.4 MG CAP PO (21:52)
[2017-02-28] MEDS: METOPROLOL TART 50 MG TAB PO ×5 (00:47→23:44)
[2017-02-28] MEDS: PIPERACILLIN/TAZOBACTAM SOD 3.375 GM in APPROPRIATE DILUENT 1 EA IV ×4 (00:54→17:28)
[2017-02-28] MEDS: ENOXAPARIN 100MG/1ML SYRINGE (J1650) SC ×2 (04:44→15:33)
[2017-02-28] MEDS: VANCOMYCIN HCL 1,000 MG, VIAL MATE ADAPTER 1 EACH in D5W 250 ML IV ×3 (04:44→16:30)
[2017-02-28] MEDS: SLF 3 ML SYR IV ×3 (05:54→21:06)
[2017-02-28 06:29] LABS: HEMATOCRIT 28.6 % (42.0-52.0); HEMOGLOBIN 9.7 g/dl (14.0-18.0); MEAN CORPUSCULAR HEMOGLOBIN 28.7 pg (27.0-33.0); MEAN CORPUSCULAR HGB CONC 33.9 g/dl (32.0-36.5); MEAN CORPUSCULAR VOLUME 84.6 fl (80.0-96.0); PLATELET COUNT, AUTOMATED 112 10^3/uL (150-450); RED BLOOD COUNT 3.38 10^6/uL (4.30-6.10); RED CELL DISTRIBUTION WIDTH 14.4 % (11.5-14.5); WHITE BLOOD COUNT 7.2 10^3/uL (4.0-10.0)
[2017-02-28 06:36] LABS: ANION GAP 9 MEQ/L (8-16); BLOOD UREA NITROGEN 10 MG/DL (7-18); CARBON DIOXIDE LEVEL 29 MEQ/L (21-32); CHLORIDE LEVEL 97 MEQ/L (98-107); CREATININE FOR GFR 0.61 MG/DL (0.70-1.30); GLOMERULAR FILTRATION RATE > 60.0 (>42); GLUCOSE, FASTING 145 MG/DL (83-110); SODIUM LEVEL 135 MEQ/L (136-145)
[2017-02-28 06:37] LABS: CALCIUM LEVEL 7.8 MG/DL (8.8-10.2)
[2017-02-28] MEDS: POTASSIUM CHLORIDE 10 MEQ SR TABLET PO ×2 (07:56)
[2017-02-28] MEDS: LACTOBACILLUS ACIDOPHILUS CAP (BACID) PO ×2 (07:56→21:06)
[2017-02-28] MEDS: BREO INH (07:57)
[2017-02-28] MEDS: FOLIC ACID 1 MG TAB PO (07:57)
[2017-02-28] MEDS: predniSONE 20 MG TAB PO (07:57)
[2017-02-28] MEDS: FINASTERIDE 5 MG TAB PO (07:57)
[2017-02-28] MEDS: KCL 10MEQ IN 100ML SWI (KRUN) 10 MEQ in APPROPRIATE DILUENT 1 EA IV ×2 (07:58→09:00)
[2017-02-28] MEDS: COSOPT OU ×2 (07:58→21:06)
[2017-02-28] MEDS: IPRATROPIUM 0.5MG/ALBUTEROL 2.5MG INH SOL UD 3ML (DUONEB)(J7620) NEB ×4 (08:00→20:00)
[2017-02-28 16:03] LABS: VANCOMYCIN LEVEL TROUGH 8.7 UG/ML (10.0-20.0)
[2017-02-28] MEDS: LATANOPROST 0.005% OPHTH SOLN 2.5 ML OU (21:06)
[2017-02-28] MEDS: TAMSULOSIN 0.4 MG CAP PO (21:06)
[2017-03-01] MEDS: ACETAMINOPHEN TAB 650MG DOSE (2X325MG) PO (00:19)
[2017-03-01] MEDS: RAMELTEON 8 MG TAB (ROZEREM) PO ×2 (00:56→20:51)
[2017-03-01] MEDS: ENOXAPARIN 100MG/1ML SYRINGE (J1650) SC ×2 (03:20→17:05)
[2017-03-01] MEDS: SLF 3 ML SYR IV ×3 (05:32→20:55)
[2017-03-01] MEDS: METOPROLOL TART 50 MG TAB PO ×3 (06:00→18:30)
[2017-03-01 06:35] LABS: HEMATOCRIT 31.1 % (42.0-52.0); HEMOGLOBIN 10.5 g/dl (14.0-18.0); MEAN CORPUSCULAR HEMOGLOBIN 28.6 pg (27.0-33.0); MEAN CORPUSCULAR HGB CONC 33.8 g/dl (32.0-36.5); MEAN CORPUSCULAR VOLUME 84.7 fl (80.0-96.0); PLATELET COUNT, AUTOMATED 124 10^3/uL (150-450); RED BLOOD COUNT 3.67 10^6/uL (4.30-6.10); RED CELL DISTRIBUTION WIDTH 14.9 % (11.5-14.5)
[2017-03-01 06:57] LABS: ANION GAP 6 MEQ/L (8-16); BLOOD UREA NITROGEN 9 MG/DL (7-18); CALCIUM LEVEL 8.1 MG/DL (8.8-10.2); CARBON DIOXIDE LEVEL 31 MEQ/L (21-32); CHLORIDE LEVEL 96 MEQ/L (98-107); CREATININE FOR GFR 0.56 MG/DL (0.70-1.30); GLOMERULAR FILTRATION RATE > 60.0 (>42); GLUCOSE, FASTING 114 MG/DL (83-110); MAGNESIUM LEVEL 1.8 MG/DL (1.8-2.4); POTASSIUM SERUM 3.1 MEQ/L (3.5-5.1); SODIUM LEVEL 133 MEQ/L (136-145)
[2017-03-01] MEDS: IPRATROPIUM 0.5MG/ALBUTEROL 2.5MG INH SOL UD 3ML (DUONEB)(J7620) NEB ×5 (08:00→20:00)
[2017-03-01] MEDS: BREO INH (08:26)
[2017-03-01] MEDS: FINASTERIDE 5 MG TAB PO (09:18)
[2017-03-01] MEDS: POTASSIUM CHLORIDE 10 MEQ SR TABLET PO ×2 (09:18→18:29)
[2017-03-01] MEDS: predniSONE 20 MG TAB PO (09:18)
[2017-03-01] MEDS: LACTOBACILLUS ACIDOPHILUS CAP (BACID) PO ×2 (09:18→20:50)
[2017-03-01] MEDS: FOLIC ACID 1 MG TAB PO (09:18)
[2017-03-01] MEDS: COSOPT OU ×2 (09:19→20:49)
[2017-03-01] MEDS: LATANOPROST 0.005% OPHTH SOLN 2.5 ML OU (20:49)
[2017-03-01] MEDS: TAMSULOSIN 0.4 MG CAP PO (20:50)
[2017-03-02] MEDS: ENOXAPARIN 100MG/1ML SYRINGE (J1650) SC (03:51)
[2017-03-02 05:52] LABS: HEMATOCRIT 30.4 % (42.0-52.0); HEMOGLOBIN 10.3 g/dl (14.0-18.0); MEAN CORPUSCULAR HGB CONC 33.9 g/dl (32.0-36.5); MEAN CORPUSCULAR VOLUME 85.6 fl (80.0-96.0); PLATELET COUNT, AUTOMATED 146 10^3/uL (150-450); RED BLOOD COUNT 3.55 10^6/uL (4.30-6.10); WHITE BLOOD COUNT 6.7 10^3/uL (4.0-10.0)
[2017-03-02 06:14] LABS: ANION GAP 6 MEQ/L (8-16); BLOOD UREA NITROGEN 9 MG/DL (7-18); CALCIUM LEVEL 8.1 MG/DL (8.8-10.2); CARBON DIOXIDE LEVEL 29 MEQ/L (21-32); CHLORIDE LEVEL 98 MEQ/L (98-107); CREATININE FOR GFR 0.47 MG/DL (0.70-1.30); GLOMERULAR FILTRATION RATE > 60.0 (>42); GLUCOSE, FASTING 127 MG/DL (83-110); MAGNESIUM LEVEL 1.8 MG/DL (1.8-2.4); POTASSIUM SERUM 3.2 MEQ/L (3.5-5.1); SODIUM LEVEL 133 MEQ/L (136-145)
[2017-03-02] MEDS: SLF 3 ML SYR IV (06:21)
[2017-03-02] MEDS: METOPROLOL TART 50 MG TAB PO ×2 (06:21)
[2017-03-02] MEDS: IPRATROPIUM 0.5MG/ALBUTEROL 2.5MG INH SOL UD 3ML (DUONEB)(J7620) NEB (08:00)
[2017-03-02] MEDS: BREO INH (08:38)
[2017-03-02] MEDS: FINASTERIDE 5 MG TAB PO (08:49)
[2017-03-02] MEDS: LACTOBACILLUS ACIDOPHILUS CAP (BACID) PO (08:49)
[2017-03-02] MEDS: predniSONE 20 MG TAB PO (08:49)
[2017-03-02] MEDS: FOLIC ACID 1 MG TAB PO (08:49)
[2017-03-02] MEDS: POTASSIUM CHLORIDE 10 MEQ SR TABLET PO (08:49)
[2017-03-02] MEDS: COSOPT OU (08:51)
== END 2017-03-02 10:46 | disposition hospice, home (50) | DRG 193 ==
LOC: M ED 07:52 → M ED INP 12:58 → M PCU 14:00
PROVIDERS: Internal Medicine
DX: J18.9 Pneumonia, unspecified organism (principal); D61.810 Antineoplastic chemotherapy induced pancytopenia; C34.92 Malignant neoplasm of unspecified part of left bronchus or lung; C79.51 Secondary malignant neoplasm of bone; C79.89 Secondary malignant neoplasm of other specified sites; D84.9 Immunodeficiency, unspecified; Z66 Do not resuscitate; I10 Essential (primary) hypertension; H40.9 Unspecified glaucoma; N40.0 Benign prostatic hyperplasia without lower urinary tract symptoms; Z92.3 Personal history of irradiation; I48.91 Unspecified atrial fibrillation; Z92.21 Personal history of antineoplastic chemotherapy; Z85.51 Personal history of malignant neoplasm of bladder; Z79.899 Other long term (current) drug therapy; Z87.891 Personal history of nicotine dependence